=== PATIENT | female | born 1945 | race Caucasian/White ===

== ENCOUNTER → 2016-05-20 | Outpatient (CLI) | payer OTHER ==
[~2016-05-20] MED LIST: ASPI-435 PO; CALC500C3 PO; CHOL200010 PO; CMD5 PO; CRAN1CAP15 PO; DNSIS60 IM; HYDR12.55 PO; LEVO100T7 PO; LPT/20 PO; LVMI SQ; MAGN1TAB19 PO; METF1TAB53 PO; METO25TA3 PO; MYCO250C26 PO; NVLGI/PEN SQ; PRD/25 PO; TACR0.5C5 PO; TACR1CAP5 PO; TRIM100T20 PO
[2016-05-20 16:29] LABS: BASO % 0.5 %; BASO ABS # 0.04 K/uL (0-0.2); COMPLETE YES; EOS % 0.7 %; HEMATOCRIT 38.5 % (37-47); IG% 0.4 %; LYMPH % 22.1 %; LYMPH ABS # 1.64 K/uL (1.2-3.4); MEAN CELL VOLUME 89.7 fL (80-100); MEAN CORPUSCULAR HEMOGLOBIN 29.1 pg (25-34); MEAN CORPUSCULAR HGB CONC 32.5 g/dl (32-36); MEAN PLATELET VOLUME 11.1 fL (7.4-10.4); MONO % 9.4 %; NEUT % 66.9 %; PLATELET COUNT 222 K/uL (130-400); RED BLOOD COUNT 4.29 M/uL (4.2-5.4); WHITE BLOOD COUNT 7.43 K/uL (4.8-10.8)
[2016-05-20 16:38] LABS: ALT/SGPT 21 U/L (12-78); AST/SGOT 16 U/L (15-37); BLOOD UREA NITROGEN 9 mg/dl (7-18); CALCIUM 8.8 mg/dl (8.5-10.1); CARBON DIOXIDE 27 mmol/L (21-32); CHLORIDE 100 mmol/L (98-107); CREATININE 0.65 mg/dl (0.60-1.20); GLUCOSE 124 mg/dl (70-99); POTASSIUM 3.9 mmol/L (3.5-5.1); SODIUM 136 mmol/L (136-145)
[2016-05-20 16:47] LABS: ALKALINE PHOSPHATASE 51 U/L (45-117); CHOLESTEROL 136 mg/dl (0-200); CHOLESTEROL/HDL RATIO 2.1; HDL CHOLESTEROL 66 mg/dl; LDL CHOLESTEROL CALCULATED 57 mg/dl; THYROID STIMULATING HORMONE 0.962 uIu/ml (0.300-4.500); TRIGLYCERIDES 65 mg/dl (0-150); VERY LOW DENSITY LIPOPROT CALC 13 mg/dl
[2016-05-20 19:15] LABS: ESTIMATED AVERAGE GLUCOSE 154 mg/dl; HA1C FLAG Normal (Normal)
== END | disposition home or self-care (01) ==
LOC: C.LABSPEC 14:44
PROVIDERS: ATTEND Family Medicine
DX: E11.9 Type 2 diabetes mellitus without complications (principal); E03.9 Hypothyroidism, unspecified; E78.2 Mixed hyperlipidemia

== ENCOUNTER → 2016-07-07 | Outpatient (CLI) | payer OTHER | END | disposition home or self-care (01) | LOC: C.LABSPEC 12:48 | PROVIDERS: ATTEND Family Medicine | DX: R30.0 Dysuria (principal) ==

== ENCOUNTER → 2016-08-16 | Outpatient (CLI) | payer OTHER ==
[~2016-08-16] MED LIST changes: -TRIM100T20 PO; +TRIM1TAB PO
== END | disposition home or self-care (01) ==
LOC: C.LABSPEC 13:26
PROVIDERS: ATTEND Family Medicine
DX: R30.0 Dysuria (principal)

== ENCOUNTER → 2016-10-17 | Outpatient (CLI) | payer OTHER | END | disposition home or self-care (01) | LOC: C.LABSPEC 13:26 | PROVIDERS: ATTEND Family Medicine | DX: R30.0 Dysuria (principal); R35.0 Frequency of micturition ==

== ENCOUNTER → 2016-11-18 | Outpatient (CLI) | payer OTHER ==
[~2016-11-18] MED LIST changes: +TRIM100T20 PO; -TRIM1TAB PO
[2016-11-18 13:36] LABS: BASO % 0.4 %; BASO ABS # 0.02 K/uL (0-0.2); COMPLETE YES; EOS % 0.5 %; LYMPH % 27.4 %; LYMPH ABS # 1.52 K/uL (1.2-3.4); MEAN CELL VOLUME 90.1 fL (80-100); MEAN CORPUSCULAR HEMOGLOBIN 29.3 pg (25-34); MEAN CORPUSCULAR HGB CONC 32.6 g/dl (32-36); MEAN PLATELET VOLUME 10.8 fL (7.4-10.4); MONO % 13.5 %; NEUT % 58.2 %; PLATELET COUNT 198 K/uL (130-400); RED BLOOD COUNT 4.33 M/uL (4.2-5.4); WHITE BLOOD COUNT 5.55 K/uL (4.8-10.8)
[2016-11-18 13:57] LABS: ALT/SGPT 20 U/L (12-78); AST/SGOT 20 U/L (15-37); BLOOD UREA NITROGEN 10 mg/dl (7-18); BUN/CREATININE RATIO 14.4 (10-20); CALCIUM 8.9 mg/dl (8.5-10.1); CARBON DIOXIDE 26 mmol/L (21-32); CHLORIDE 96 mmol/L (98-107); CHOLESTEROL 135 mg/dl (0-200); CREATININE 0.72 mg/dl (0.60-1.20); GLUCOSE 265 mg/dl (70-99); POTASSIUM 4.1 mmol/L (3.5-5.1); SODIUM 131 mmol/L (136-145)
[2016-11-18 14:03] LABS: ALB/GLOB RATIO 1.2 (0.9-2); ALKALINE PHOSPHATASE 47 U/L (45-117); CHOLESTEROL/HDL RATIO 2.1; HDL CHOLESTEROL 63 mg/dl; LDL CHOLESTEROL CALCULATED 59 mg/dl; THYROID STIMULATING HORMONE 0.606 uIu/ml (0.300-4.500); TRIGLYCERIDES 66 mg/dl (0-150); VERY LOW DENSITY LIPOPROT CALC 13 mg/dl
[2016-11-18 15:15] LABS: ESTIMATED AVERAGE GLUCOSE 148 mg/dl; HA1C FLAG Normal (Normal)
== END | disposition home or self-care (01) ==
LOC: C.LABSPEC 12:08
PROVIDERS: ATTEND Family Medicine
DX: E11.9 Type 2 diabetes mellitus without complications (principal); E78.2 Mixed hyperlipidemia; E03.9 Hypothyroidism, unspecified

== ENCOUNTER → 2016-11-24 | Outpatient (CLI) | payer OTHER | END | disposition home or self-care (01) | LOC: C.LABSPEC 13:02 | PROVIDERS: ATTEND Family Medicine | DX: R35.0 Frequency of micturition (principal); R30.0 Dysuria ==

== ENCOUNTER → 2017-01-02 | Outpatient (CLI) | payer OTHER | END | disposition home or self-care (01) | LOC: C.LABSPEC 13:10 | PROVIDERS: ATTEND Family Medicine | DX: R30.0 Dysuria (principal); R35.0 Frequency of micturition ==

== ENCOUNTER → 2017-02-09 | Outpatient (CLI) | payer OTHER | END | disposition home or self-care (01) | LOC: C.LABSPEC 13:56 | PROVIDERS: ATTEND Family Medicine | DX: R30.0 Dysuria (principal); R35.0 Frequency of micturition ==

== ENCOUNTER → 2017-04-28 | Outpatient (CLI) | payer OTHER ==
[~2017-04-28] MED LIST changes: -TRIM100T20 PO; +TRIM1TAB PO
== END | disposition home or self-care (01) ==
LOC: C.LABSPEC 13:23
PROVIDERS: ATTEND Family Medicine
DX: R30.0 Dysuria (principal); R35.0 Frequency of micturition

== ENCOUNTER → 2017-05-26 | Outpatient (CLI) | payer OTHER ==
[~2017-05-26] MED LIST changes: -LPT/20 PO; +LPT20 PO
[2017-05-26 13:55] LABS: BASO % 0.4 %; BASO ABS # 0.02 K/uL (0-0.2); EOS % 0.9 %; EOS ABS # 0.05 K/uL (0-0.5); HEMATOCRIT 39.5 % (37-47); IG# 0.01 K/uL (0.00-0.02); LYMPH % 31.6 %; LYMPH ABS # 1.77 K/uL (1.2-3.4); MEAN CELL VOLUME 92.3 fL (80-100); MEAN CORPUSCULAR HEMOGLOBIN 30.4 pg (25-34); MEAN CORPUSCULAR HGB CONC 32.9 g/dl (32-36); MONO % 14.1 %; MONO ABS # 0.79 K/uL (0.11-0.59); NEUT % 52.8 %; NEUT ABS # 2.96 K/uL (1.4-6.5); PLATELET COUNT 205 K/uL (130-400); RED CELL DISTRIBUTION WIDTH SD 47.1 fL (36.4-46.3)
[2017-05-26 14:02] LABS: HEMOGLOBIN A1C 6.8 % (4.5-5.6)
[2017-05-26 16:32] LABS: ALBUMIN 3.7 gm/dl (3.4-5.0); ALT/SGPT 20 U/L (12-78); BLOOD UREA NITROGEN 11 mg/dl (7-18); CALCIUM 9.4 mg/dl (8.5-10.1); CARBON DIOXIDE 27 mmol/L (21-32); CHOLESTEROL 131 mg/dl (0-200); CREATININE 0.64 mg/dl (0.60-1.20); GLUCOSE 161 mg/dl (70-99); POTASSIUM 3.9 mmol/L (3.5-5.1); SODIUM 130 mmol/L (136-145)
[2017-05-26 16:41] LABS: ALKALINE PHOSPHATASE 42 U/L (45-117); AST/SGOT 22 U/L (15-37); LDL CHOLESTEROL CALCULATED 52 mg/dl
== END | disposition home or self-care (01) ==
LOC: C.LABSPEC 12:46
PROVIDERS: ATTEND Family Medicine
DX: E11.9 Type 2 diabetes mellitus without complications (principal); E78.2 Mixed hyperlipidemia; E03.9 Hypothyroidism, unspecified

== ENCOUNTER → 2017-11-23 | Outpatient (CLI) | payer OTHER | END | disposition home or self-care (01) | LOC: C.LABSPEC 18:10 | PROVIDERS: ATTEND Family Medicine | DX: E11.9 Type 2 diabetes mellitus without complications (principal) ==

== ENCOUNTER 2023-03-13 16:42 | Observation (INO) ==
--- NOTE | 2023-03-13 16:51 | ED Triage Note ---
Date of Service March 13, 2023 History of Present Illness This patient was briefly evaluated while in triage. An abbreviated physical exam was performed. This patient is a 77-year-old Female who presents to the ED for evaluation of a possible UTI. She has been urinating frequently, feels weak, and has a decreased appetite. Symptoms have been ongoing for 3 days. She sees urology at [facility]. She gave them a urine sample at the urology office and states there was blood in it. She was started on Cipro and took the first dose just before arrival, but she wanted to get checked out to make sure she wasn't dehydrated. Physical Exam VITALS: Vitals are noted on the nurse's note and reviewed by myself. GENERAL: This is a 77-year-old female, in no acute distress, well-developed well-nourished. SKIN: The skin was without rashes. HEART: Regular rate and rhythm without murmurs gallops or rubs. LUNGS: Clear to auscultation bilaterally without wheezes, rales or rhonchi. ABDOMEN: Positive bowel sounds x 4. Soft, nontender to palpation NEURO: Patient was alert and oriented to person place and time. Initial orders for labs and / or imaging were placed and patient was placed in the waiting area until a bed is available. Please see further documentation for the full ED course. MDM / Impression Impression Impression: Acute UTI (urinary tract infection), Elevated INR, Acute hyponatremia
[2023-03-13 18:22] LABS: Basophils # (auto) 0.05 K/uL (0.00-0.20); Basophils % (auto) 0.4 %; Eosinophils # (auto) 0.03 K/uL (0.00-0.50); Eosinophils % (auto) 0.2 %; Hemoglobin 11.4 g/dl (12.0-16.0); Immature Granulocytes # (auto) 0.06 K/uL (0.01-0.20); Immature Granulocytes % (auto) 0.5 %; Lymphocytes # (auto) 1.71 K/uL (1.20-3.40); Lymphocytes % (auto) 14.1 %; Mean Corpuscular Hgb Conc 32.6 g/dL (32.0-36.0); Mean Corpuscular Volume 95.1 fL (80.0-100.0); Mean Platelet Volume 10.5 fL (9.4-12.4); Monocytes # (auto) 1.18 K/uL (0.11-0.59); Monocytes % (auto) 9.8 %; Neutrophils # (auto) 9.07 K/uL (1.40-6.50); Platelet Count 215 K/uL (130-400); RDW Coefficient of Variation 14.4 % (11.5-14.5); RDW Standard Deviation 50.8 fL (36.4-46.3); Red Blood Count 3.68 M/uL (4.20-5.40)
[2023-03-13 18:39] LABS: Appearance Urine Turbid (Clear); Bacteria Urine Automated 4+ (Negative); Bilirubin Urine Negative (Negative); Blood Urine 3+ (Negative); Cast Urine Automated 0 /lpf (0-5); Color Urine Yellow; Glucose Urine UA 2+ (Negative); Ketones Urine 1+ (Negative); Leukocyte Esterase Urine 3+ (Negative); Nitrite Urine Positive (Negative); Protein Urine 1+ (Negative); RBC Urine Automated 0-4 /hpf (0-4); Specific Gravity Urine 1.016 (1.000-1.030); Urobilinogen Urine Negative (Negative); WBC Urine Automated >30 /hpf (0-5); pH Urine 6.5 (4.5-7.5)
[2023-03-13 18:41] LABS: Alanine Aminotransferase 13 U/L (7-52); Albumin Globulin Ratio 0.9 (0.9-2); Albumin Level 3.5 gm/dl (3.4-5.0); Alkaline Phosphatase 53 U/L (34-104); Anion Gap 4 (3-11); Aspartate Aminotransferase 21 U/L (13-39); BUN Creatinine Ratio 17.6 (10-20); Bilirubin,Total 0.7 mg/dl (0.2-1.0); Blood Urea Nitrogen 13 mg/dl (6-23); Calcium 9.1 mg/dl (8.6-10.3); Carbon Dioxide 24 mmol/L (21-32); Chloride 99 mmol/L (98-107); Est GFR (African American) 91.2 ml/min; Est GFR (Non-African American) 78.7 ml/min; Globulin 3.7 gm/dl (2.5-4.0); Glucose 111 mg/dl (70-99(Fasting)); Sodium 127 mmol/L (136-145); Total Protein 7.2 gm/dl (6.0-8.3)
[2023-03-13 19:15] LABS: Partial Thromboplastin Ratio 2.5; Prothrombin Time 60.7 Seconds (9.0-12.0)
[2023-03-13 19:38] LABS: INR 6.2 (0.9-1.1); Partial Thromboplastin Time 71.2 Seconds (21.0-31.0)
[2023-03-13] MEDS ORDERED: cefTRIAXone SODIUM 350 MG/ML IM IM ONE (20:01)
[2023-03-13] MEDS ORDERED: SODIUM CHLORIDE 0.9% 1,000 ML IV ONE (20:01)
[2023-03-13] MEDS ORDERED: CEFEPIME 2,000 MG/20 ML VIAL IV STA (20:02)
--- NOTE | 2023-03-13 20:03 | Emergency Department Note ---
Impression & Plan Acute UTI (urinary tract infection), Elevated INR, Acute hyponatremia ED Provider Note NAME: JOSHUA YANG AGE: 77 SEX: F : 1945 ARRIVES VIA: Walk-In INFORMANT: Patient, ED PROVIDER(S): Collette Maldonado MD CHIEF COMPLAINT: UTI HPI: This is a 77-year-old female with history of renal transplant on immunosuppressive medications, atrial flutter, hydronephrosis of transplanted kidney, presenting for UTI. Patient states that for the past few days she has had symptoms of UTI, worsening dysuria and urgency/frequency. She notes that she did a urine sample on Monday and was waiting for the culture. She started antibiotics today but has noticed that she feels extremely weak, tired with chills. She does have a transplanted kidney on immunosuppression medications. She follows with urology, who is working up for hydronephrosis of her transplanted kidney. Otherwise she has not had any nausea or vomiting. No fevers at home. ROS: See above HPI for pertinent positives & negatives. A total of 10 systems reviewed and were otherwise negative. PAST MEDICAL HISTORY: See Below PAST SURGICAL HISTORY: See Below FAMILY HISTORY: See Below SOCIAL HISTORY: See Below HOME MEDICATIONS: See Below ALLERGIES: See Below VITALS: See Below PHYSICAL EXAMINATION: General: resting comfortably in no acute distress Head: Normocephalic and atraumatic Eyes: Normal inspection, extraocular muscles intact, no conjunctival pallor Ear, nose, throat: Normal external exam Neck: Normal range of motion Respiratory: Patient is in no respiratory distress, lungs clear to auscultation bilaterally Cardiovascular: RRR without murmur appreciated GI: soft, nontender, no guarding or rebound Extremities: pulses intact with good cap refills, no LE pitting edema or calf tenderness Neuro: The patient awake and alert, appropriately conversive,no focal decifits Skin: Warm, dry, and intact MEDICAL DECISION MAKING: This is a 77-year-old female with history as above presenting for UTI. Patient's blood work and urinalysis were done in triage. Blood work as reviewed by me reveals a leukocytosis 12.1. Otherwise she has an INR of 6.2, hyponatremia 127. Unclear etiology of these findings. Otherwise patient's urinalysis reveals clear UTI with hematuria, leuk esterase, nitrate positive significant bacteriuria. We will treat with cefepime as previous cultures in 2018 and 2019 do show Pseudomonas growth. Otherwise we will get CT abdomen/pelvis to rule out intra abdominal pathology such as kidney stones potential etiology of patient's current UTI. CT imaging does reveal moderate to severe hydronephrosis, this appears similar to patient's previous ultrasound on about 3 weeks ago upon record review. Will admit for IV antibiotics, significantly elevated INR, hyponatremia and potential for deterioration. Triage Nursing notes reviewed. Prior medical records reviewed Vital Signs: reviewed and remarkable for no significant abnormalities Differential diagnosis: Urosepsis, acute graft rejection, infected kidney stone ER treatment provided: See below Diagnostics interpreted by me: ECG: None Cardiac Monitoring: An order was placed for continuous cardiac monitoring. The monitor shows a rate of 90 with sinus rhythm Laboratory studies: As stated above and show below. Imaging studies: See below. Radiographic imaging was reviewed by myself Consultation(s): None Critical Care Note: I have personally spent 30 minutes of critical care time in the direct management of this patient. This includes bedside care, interpretation of diagnostic studies, and testing, discussion with consultants, patient, and family members, and other required patient management activities. This 30 minutes is in excess of all separately billable procedures. Past Med/Surg History Medical History (Updated 03/13/23 @ 22:44 by Collette Maldonado MD) Atrial flutter Heart valve disease pt is s/p mechanical mitral valve replacement. most recent ECHO 01/24/23: mitral valve: mild paravalvular regurgitation. moderately calcified AV cusps with decreased systolic ecxursion. likely moderate to severe, low flow/low gradient stenosis (MANOLO 0.81cm2) Hydronephrosis of kidney transplant reason for upcoming procedure; pt had catheter placement with no signifcant improvement Osteoarthritis History of degenerative disc disease Spinal stenosis Fistula hx LUE AVF History of hemodialysis on HD x 2 years prior to renal transplant History of end stage renal disease hx ESRD and HD previously; pt is s/p left renal transplant. Follows with Dr. Benitez, [facility]. DM type 2 (diabetes mellitus, type 2) IDDM Wears hearing aid in both ears Peripheral Vascular Disease Hypothyroidism Hyperlipidemia Hypertension Surgical History (Updated 03/13/23 @ 15:41 by Isamar Romero PA-C) History of wisdom tooth extraction History of cataract surgery History of mitral valve replacement mechanical; Follows with Dr. Luca Coley History of colonoscopy History of kidney transplant Left. 1997, 2003. 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 Required: No Beliefs That Will Affect Care: None marital status: Current Living Situation: Spouse current occupational status: retired Feels Safe at Home: Yes Assistive Devices: Cane, Glasses and Hearing Aid - Bilateral Allergies Allergies Allergy/AdvReac Type Severity Reaction Status Date / Time Sulfa (Sulfonamide Allergy Intermediate RASH & ITCH Verified 02/08/23 13:14 Antibiotics) bee venom protein (honey bee) Allergy Unknown UNKNOWN Verified 02/08/23 13:14 sulfamethoxazole Allergy Unknown Rash Verified 02/08/23 13:14 [From Bactrim] trimethoprim [From Bactrim] Allergy Unknown Rash Verified 02/08/23 13:14 Home Meds Home Medications Medication Instructions Recorded Confirmed aspirin 81 mg tablet,delayed 81 mg PO QPM 02/26/20 02/08/23 release atorvastatin 20 mg tablet 20 mg PO QPM 02/26/20 02/08/23 calcium carbonate 200 mg calcium 200 mg PO QDL 02/26/20 02/08/23 (500 mg) chewable tablet (Tums) cholecalciferol (vitamin D3) 125 125 mcg PO QDL 02/26/20 02/08/23 mcg (5,000 unit) capsule insulin aspar prt-insulin aspart 1 sliding scale dose subcut 02/26/20 02/08/23 100 unit/mL (70-30) subcutaneous USEASDIRECTD soln (Novolog Mix 70-30 U-100 Insuln) levothyroxine 100 mcg capsule 100 mcg PO QAM 02/26/20 02/08/23 prednisone 2.5 mg tablet 2.5 mg PO QAM 02/26/20 02/08/23 tacrolimus 0.5 mg capsule, 0.5 mg PO QAM 02/26/20 02/08/23 immediate-release Saccharomyces boulardii 250 mg 250 mg PO QDL 12/28/22 02/08/23 capsule (Daily Probiotic (S. boulardii)) amlodipine 2.5 mg tablet 5 mg PO BID 12/28/22 02/08/23 gabapentin 300 mg capsule 300 mg PO QDL 12/28/22 02/08/23 insulin detemir U-100 100 unit/mL 10 unit subcut QAM 12/28/22 02/08/23 (3 mL) subcutaneous pen (Levemir FlexPen) magnesium oxide 400 mg PO QDL 12/28/22 02/08/23 metoprolol succinate 50 mg capsule 50 mg PO BID 12/28/22 02/08/23 sprinkle, ext. release 24 hr mycophenolate mofetil 250 mg 250 mg PO BID 12/28/22 02/08/23 capsule valsartan 160 mg tablet 160 mg PO BID 12/28/22 02/08/23 warfarin 3 mg tablet 3 mg PO UD 02/08/23 02/08/23 warfarin 4 mg tablet 4 mg PO UD 02/08/23 02/08/23 Previous Rx's Medication Instructions Recorded ciprofloxacin HCl 250 mg tablet 250 mg PO BID 7 days #14 tabs 03/13/23 Results & Data (ED) Vital Signs Vital Signs - 24 hr 03/13/23 16:50 03/13/23 20:08 03/13/23 20:21 Temperature 36.9 C Temperature Source Temporal Artery Scan Pulse Rate 94 H 89 90 Pulse Rate from SpO2 Sensor 89 89 Respiratory Rate 19 26 H 21 Respiratory Effort / Characteristics Non-Labored Spontaneous Respiratory Depth Normal Blood Pressure 149/71 H 159/78 H 143/63 H Blood Pressure Mean 97 105 89 Pulse Oximetry 92 95 95 Oxygen Delivery Method Room Air Room Air Room Air Sepsis Recent Fever Within 48 Hours No Sepsis New/Unexplained Change in Mental Status N/A Sepsis Action Taken by Nursing No Action Required 03/13/23 20:30 03/13/23 20:35 03/13/23 21:00 Temperature Temperature Source Pulse Rate 90 91 H 89 Pulse Rate from SpO2 Sensor 90 89 Respiratory Rate 19 23 Respiratory Effort / Characteristics Respiratory Depth Blood Pressure 143/63 H 134/66 Blood Pressure Mean 89 88 Pulse Oximetry 95 95 Oxygen Delivery Method Sepsis Recent Fever Within 48 Hours Sepsis New/Unexplained Change in Mental Status Sepsis Action Taken by Nursing 03/13/23 22:00 03/13/23 22:30 Temperature Temperature Source Pulse Rate 88 90 Pulse Rate from SpO2 Sensor 88 86 Respiratory Rate 32 H 20 Respiratory Effort / Characteristics Respiratory Depth Blood Pressure 133/62 132/67 Blood Pressure Mean 85 88 Pulse Oximetry 97 96 Oxygen Delivery Method Sepsis Recent Fever Within 48 Hours Sepsis New/Unexplained Change in Mental Status Sepsis Action Taken by Nursing Laboratory Data 03/13/23 18:08 03/13/23 18:08 Lab Results 03/13/23 03/13/23 Range/Units 18: 18:08 WBC 12.10 H (4.8-10.8) K/ul RBC 3.68 L (4.20-5.40) M/uL Hgb 11.4 L (12.0-16.0) g/dl Hct 35.0 L (37.0-47.0) % MCV 95.1 (80.0-100.0) fL MCH 31.0 (25.0-34.0) pg MCHC 32.6 (32.0-36.0) g/dL RDW Std Deviation 50.8 H (36.4-46.3) fL RDW Coeff of Ramy 14.4 (11.5-14.5) % Plt Count 215 (130-400) K/uL MPV 10.5 (9.4-12.4) fL Immature Gran % (Auto) 0.5 % Neut % (Auto) 75.0 % Lymph % (Auto) 14.1 % [place] % (Auto) 9.8 % Eos % (Auto) 0.2 % Baso % (Auto) 0.4 % Neut # (Auto) 9.07 H (1.40-6.50) K/uL Lymph # (Auto) 1.71 (1.20-3.40) K/uL [place] # (Auto) 1.18 H (0.11-0.59) K/uL Eos # (Auto) 0.03 (0.00-0.50) K/uL Baso # (Auto) 0.05 (0.00-0.20) K/uL Immature Gran # (Auto) 0.06 (0.01-0.20) K/uL PT 60.7 H (9.0-12.0) Seconds INR 6.2 H* (0.9-1.1) APTT 71.2 H* (21.0-31.0) Seconds PTT Ratio 2.5 Sodium 127 L (136-145) mmol/L Potassium 4.0 (3.5-5.1) mmol/L Chloride 99 (98-107) mmol/L Carbon Dioxide 24 (21-32) mmol/L Anion Gap 4 (3-11) BUN 13 (6-23) mg/dl Creatinine 0.74 (0.6-1.2) mg/dl Est Cr Clr Drug Dosing Not Reportable Est GFR ( Amer) 91.2 ml/min Est GFR (Non-Af Amer) 78.7 ml/min BUN/Creatinine Ratio 17.6 (10-20) Glucose 111 H (70-99(Fasting)) mg/dl Calcium 9.1 (8.6-10.3) mg/dl Total Bilirubin 0.7 (0.2-1.0) mg/dl AST 21 (13-39) U/L ALT 13 (7-52) U/L Alkaline Phosphatase 53 (34-104) U/L Total Protein 7.2 (6.0-8.3) gm/dl Albumin 3.5 (3.4-5.0) gm/dl Globulin 3.7 (2.5-4.0) gm/dl Albumin/Globulin Ratio 0.9 (0.9-2) Urine Color Yellow Urine Appearance Turbid A (Clear) Urine pH 6.5 (4.5-7.5) Ur Specific [place] 1.016 (1.000-1.030) Urine Protein 1+ H (Negative) Urine Glucose (UA) 2+ H (Negative) Urine Ketones 1+ H (Negative) Urine Blood 3+ H (Negative) Urine Nitrite Positive A (Negative) Urine Bilirubin Negative (Negative) Urine Urobilinogen Negative (Negative) Ur Leukocyte Esterase 3+ H (Negative) Urine WBC (Auto) >30 H (0-5) /hpf Urine RBC (Auto) 0-4 (0-4) /hpf U Hyaline Cast (Auto) 0 (0-5) /lpf U Epithel Cells (Auto) 10-20 H (0-5) /lpf Urine Bacteria (Auto) 4+ H (Negative) Administered Medications Discontinued Medications Ceftriaxone Sodium (Ceftriaxone Sodium 350 Mg/Ml Im) 1,000 mg IM NOW ONE Stop: 03/13/23 20:02 Last Admin: 03/13/23 20:30 Dose: Not Given Documented By: IZAIAH Sodium Chloride (Nss) 1,000 mls @ 999 mls/hr IV .Q1H1M ONE Stop: 03/13/23 21:01 Last Admin: 03/13/23 20:26 Dose: 999 mls/hr Documented By: IZAIAH Cefepime HCl (Maxipime) 2,000 mg in 20 mls @ 5 mls/min IV NOW STA; Protocol Stop: 03/13/23 20:05 Last Admin: 03/13/23 20:26 Dose: 5 mls/min Documented By: IZAIAH Imaging Data Radiologist's Impression: Abdomen/Pelvis CT 03/13/23 20:00 Exam(s): CT ABDOMEN + PELVIS Without Contrast EXAM: CT Abdomen and Pelvis Without Intravenous Contrast CLINICAL HISTORY: Reason for exam: kidney stone, hx transplant, UTI. TECHNIQUE: Axial computed tomography images of the abdomen and pelvis without intravenous contrast. CTDI is 21.17 mGy and DLP is 1026.31 mGy-cm. Automated exposure control was utilized for the study. A dose lowering technique was utilized adhering to the principles of ALARA. COMPARISON: No relevant prior studies available. FINDINGS: Lung bases: Unremarkable. No mass. No consolidation. Heart: Cardiomegaly. Mitral valve prosthesis. ABDOMEN: Liver: Unremarkable. Gallbladder and bile ducts: Unremarkable. No calcified stones. No ductal dilation. Pancreas: Atrophy the pancreas. No ductal dilation. Spleen: Unremarkable. No splenomegaly. Adrenals: Unremarkable. No mass. Kidneys and ureters: Bilateral renal atrophy with nonfunctional kidneys. The transplanted kidney in the LEFT iliac fossa with moderate- severe hydronephrosis. Consider renal transplant Doppler, if clinically indicated. Stomach and bowel: Diverticulosis, without acute diverticulitis. No small bowel obstruction. No free intraperitoneal air. PELVIS: Appendix: No findings to suggest acute appendicitis. Bladder: Unremarkable. No stones. Reproductive: ABDOMEN and PELVIS: Intraperitoneal space: Unremarkable. No free air. No significant fluid collection. Bones/joints: Sternotomy wires. Degenerative changes of the spine. No acute fracture. No dislocation. Soft tissues: Unremarkable. Vasculature: Atherosclerotic changes of the aorta. No abdominal aortic aneurysm. Lymph nodes: Unremarkable. No enlarged lymph nodes. IMPRESSION: 1. Bilateral renal atrophy with nonfunctional kidneys. Transplanted kidney in the LEFT iliac fossa with moderate-severe hydronephrosis. Consider renal transplant Doppler, if clinically indicated. 2. Diverticulosis, without acute diverticulitis. No small bowel obstruction. No free intraperitoneal air. Electronically signed by: Ángel Laughlin MD 03/13/23 21:32 PM Discharge Plan Visit Data Chief Complaint: Urinary Symptoms Stated Complaint: URINARY SYMPTOMS, FEVER, LOSS OF APPITITE ED Provider: Collette Maldonado Discharge Problem: Acute UTI (urinary tract infection), Elevated INR, Acute hyponatremia Forms Stand Alone Forms: My [facility] [employer] Prescriptions Prescriptions: No Action tacrolimus 0.5 mg capsule 0.5 mg PO QAM levothyroxine 100 mcg capsule 100 mcg PO QAM aspirin 81 mg tablet,delayed release (DR/EC) 81 mg PO QPM insulin asp prt-insulin aspart [Novolog Mix 70-30 U-100 Insuln] 100 unit/mL (70-30) solution 1 sliding scale dose subcut USEASDIRECTD calcium carbonate [Tums] 200 mg calcium (500 mg) tablet,chewable 200 mg PO QDL cholecalciferol (vitamin D3) 125 mcg (5,000 unit) capsule 125 mcg PO QDL atorvastatin 20 mg tablet 20 mg PO QPM prednisone 2.5 mg tablet 2.5 mg PO QAM metoprolol succinate 50 mg capsule,sprinkle,ER 24hr 50 mg PO BID mycophenolate mofetil 250 mg capsule 250 mg PO BID amlodipine 2.5 mg tablet 5 mg PO BID valsartan 160 mg tablet 160 mg PO BID ciprofloxacin HCl 250 mg tablet 250 mg PO BID 7 Days Qty: 14 0RF gabapentin 300 mg capsule 300 mg PO QDL magnesium oxide 400 mg magnesium capsule 400 mg PO QDL Saccharomyces boulardii [Daily Probiotic (S. boulardii)] 250 mg capsule 250 mg PO QDL Levemir FlexPen 100 unit/mL (3 mL) insulin pen 10 unit subcut QAM Rx Instructions: 10 units warfarin 4 mg Tablet 4 mg PO UD Patient Comments: takes every day except wed warfarin 3 mg Tablet 3 mg PO UD Patient Comments: takes every day except wed Referrals Referrals: Joe Quesada, [Primary Care Provider] -
--- NOTE | 2023-03-13 21:33 | CT Scan Report ---
Exam(s): CT ABDOMEN + PELVIS Without Contrast EXAM: CT Abdomen and Pelvis Without Intravenous Contrast CLINICAL HISTORY: Reason for exam: kidney stone, hx transplant, UTI. TECHNIQUE: Axial computed tomography images of the abdomen and pelvis without intravenous contrast. CTDI is 21.17 mGy and DLP is 1026.31 mGy-cm. Automated exposure control was utilized for the study. A dose lowering technique was utilized adhering to the principles of ALARA. COMPARISON: No relevant prior studies available. FINDINGS: Lung bases: Unremarkable. No mass. No consolidation. Heart: Cardiomegaly. Mitral valve prosthesis. ABDOMEN: Liver: Unremarkable. Gallbladder and bile ducts: Unremarkable. No calcified stones. No ductal dilation. Pancreas: Atrophy the pancreas. No ductal dilation. Spleen: Unremarkable. No splenomegaly. Adrenals: Unremarkable. No mass. Kidneys and ureters: Bilateral renal atrophy with nonfunctional kidneys. The transplanted kidney in the LEFT iliac fossa with moderate- severe hydronephrosis. Consider renal transplant Doppler, if clinically indicated. Stomach and bowel: Diverticulosis, without acute diverticulitis. No small bowel obstruction. No free intraperitoneal air. PELVIS: Appendix: No findings to suggest acute appendicitis. Bladder: Unremarkable. No stones. Reproductive: ABDOMEN and PELVIS: Intraperitoneal space: Unremarkable. No free air. No significant fluid collection. Bones/joints: Sternotomy wires. Degenerative changes of the spine. No acute fracture. No dislocation. Soft tissues: Unremarkable. Vasculature: Atherosclerotic changes of the aorta. No abdominal aortic aneurysm. Lymph nodes: Unremarkable. No enlarged lymph nodes. IMPRESSION: 1. Bilateral renal atrophy with nonfunctional kidneys. Transplanted kidney in the LEFT iliac fossa with moderate-severe hydronephrosis. Consider renal transplant Doppler, if clinically indicated. 2. Diverticulosis, without acute diverticulitis. No small bowel obstruction. No free intraperitoneal air. Electronically signed by: Ángel Laughlin MD 03/13/23 21:32 PM
--- NOTE | 2023-03-14 00:53 | History & Physical Report ---
Date of Service March 14, 2023 Assessment & Plan (1) Acute UTI (urinary tract infection): Plan: 77 F with PMH left renal transplant on immunosuppressive therapy, atrial flutter, hypertension, hyperlipidemia, hypothyroidism, presenting for UTI. Acute UTI -Afebrile. Symptomatic (dysuria, hematuria). Confirmed on urinalysis. -Hydronephrosis of transplanted left kidney, no evidence of stones seen on imaging. -S/p IV cefepime 2 g x 1 dose in the ED. Patient has documented history of Pseudomonas UTI. * Admit to [facility] telemetry * Continue antibiotics x10 days: IV cefepime 2 g every 12 hours * Await urine culture report for targeted therapy * Trend daily CBC. Supratherapeutic INR -INR 6.2 on admission. Patient follows with anticoagulation clinic but it is unclear where at this time. Therapeutic range also unknown. -Patient on warfarin 4 mg daily (previously 4 mg every afternoon except on Monday; 3 mg daily except Monday) for mechanical mitral valve replacement. * Tentatively hold warfarin until INR between 2.5-3.5, per guidelines for mechanical mitral valve (obtain anticoagulation clinic records ([facility] to verify warfarin regimen, therapeutic INR range) * Trend daily PT/INR Acute hyponatremia -127 on admission. Asymptomatic/mild. Review of chart shows normal range in the 130s. Last recorded sodium level one month ago normal (137). -Serum osm-270, urine osm-434, urine Na-58. Likely SIADH. -Thyroid-related etiology also possible, patient has history of hypothyroidism on levothyroxine (last TSH in 2019). * Fluid restriction-1.2 L * Trend sodium level on daily labs. Consider salt tabs if no improvement/worsening hyponatremia * Pending TSH level in a.m. S/p left renal transplant + hydronephrosis -On mycophenolate 250 mg twice daily, tacrolimus 1 mg daily, prednisone 2.5 mg daily -Follows with [facility]. Has been evaluated multiple times for frequent left renal hydronephrosis -Reflux etiology for hydronephrosis initially considered. However, catheter placement had no effect on symptoms. -Per last outpatient urology note, patient/family opted for stent placement (vs nephrostomy), with tentative plans for ureteroscopy. * Continue home regimen * Appreciate urologic evaluation Hypertension -Chronic. Managed with valsartan 160 mg twice daily, amlodipine 5 mg twice daily. * Continue home regimen Diabetes mellitus -IDDM type II. On SQ insulin regimen at home (Basal: Levemir 10 units every morning. Bolus: NovoLog 70/30 sliding scale dose) * Modified basal bolus regimen: Lantus 7 units every morning, SSI NovoLog per protocol (target range 100-140, CF-30, CR-10) * ACHS glucose checks * Carb consistent diet Hyperlipidemia -Chronic. On atorvastatin 20 mg every afternoon. * Continue home regimen GERD Heart valve disease -Chronic. S/p mechanical mitral valve replacement. On warfarin 4 mg every afternoon, aspirin 81 mg every afternoon, metoprolol succinate 50 mg twice daily -Warfarin held on admission for supratherapeutic INR 6.2. * Hold warfarin until INR falls within target range (see above). * Continue aspirin, Toprol Hypothyroidism -Chronic. Managed on levothyroxine 100 mcg daily. * Continue home regimen. * Pending TSH level. Appreciate results. Lumbar radiculopathy -Chronic. On gabapentin 300 mg daily. -Sees [facility]. Review of chart reveals epidural injection recently considered but deferred due to renal, cardiac comorbidities. * Continue home gabapentin Code: Full code Dispo: Med-Surg telemetry FEN/GI: Carb consistent DVT Prophylaxis: Lovenox 40 mg q24h PT/OT: Yes Consults: Urology Case Management: No (2) Elevated INR: (3) Acute hyponatremia: (4) Hypertension: (5) Hyperlipidemia: (6) DM type 2 (diabetes mellitus, type 2): (7) Heart valve disease: (8) Hypothyroidism: (9) Lumbar radiculopathy: History of Present Illness Primary Care Provider: DO Ida Powers is a 77-year-old woman with history of left renal transplant on immunosuppressive therapy, heart valve disease (s/p mechanical mitral valve replacement on warfarin), atrial flutter, peripheral vascular disease, type 1 diabetes, hypothyroidism, hypertension, and hyperlipidemia, who presents for urinary frequency, and concern for UTI. Patient provided urine sample last week, the culture was still pending. She was started on antibiotics earlier today but presented to the hospital due to lethargy, chills. She denies fevers, abdominal pain, burning on urination. In the ED, vitals were stable. CBC was notable for WBC-12.10, INR-6.2, and hyponatremia-127. UA showed hematuria, + leukocyte esterase, + nitrites, + significant bacteriuria. CT A/P showed moderate to severe hydronephrosis of transplanted left kidney. She received a 1 L NS bolus, and a dose of IV cefepime 2 g. Hospitalist service was then consulted for admission. On admission, patient corroborated ED HPI. She denies fevers, chills, abdominal pain, or burning on urination, though she does report hematuria, and urinary frequency. Allergies Allergy/AdvReac Type Severity Reaction Status Date / Time Sulfa (Sulfonamide Allergy Intermediate RASH & ITCH Verified 03/14/23 00:17 Antibiotics) bee venom protein (honey bee) Allergy Unknown UNKNOWN Verified 03/14/23 00:17 sulfamethoxazole Allergy Unknown Rash Verified 03/14/23 00:17 [From Bactrim] trimethoprim [From Bactrim] Allergy Unknown Rash Verified 03/14/23 00:17 Home Medications Medication Instructions Recorded Confirmed Type aspirin 81 mg tablet,delayed 81 mg PO QPM 02/26/20 03/14/23 History release atorvastatin 20 mg tablet 20 mg PO QPM 02/26/20 03/14/23 History calcium carbonate 200 mg calcium 1,000 mg PO QDL 02/26/20 03/14/23 History (500 mg) chewable tablet (Tums) insulin aspar prt-insulin aspart 1 sliding scale dose subcut 02/26/20 03/14/23 History 100 unit/mL (70-30) subcutaneous USEASDIRECTD soln (Novolog Mix 70-30 U-100 Insuln) levothyroxine 100 mcg capsule 100 mcg PO QAM 02/26/20 03/14/23 History prednisone 2.5 mg tablet 2.5 mg PO QAM 02/26/20 03/14/23 History tacrolimus 0.5 mg capsule, 1 mg PO QAM 02/26/20 03/14/23 History immediate-release amlodipine 2.5 mg tablet 5 mg PO BID 12/28/22 03/14/23 History gabapentin 300 mg capsule 300 mg PO QAM 12/28/22 03/14/23 History insulin detemir U-100 100 unit/mL 10 unit subcut QAM 12/28/22 03/14/23 History (3 mL) subcutaneous pen (Levemir FlexPen) magnesium oxide 400 mg PO QDL 12/28/22 03/14/23 History metoprolol succinate 50 mg capsule 50 mg PO BID 12/28/22 03/14/23 History sprinkle, ext. release 24 hr mycophenolate mofetil 250 mg 250 mg PO BID 12/28/22 03/14/23 History capsule valsartan 160 mg tablet 160 mg PO BID 12/28/22 03/14/23 History Lactobacillus rhamnosus GG 10 1 cap PO DAILYBL 03/14/23 03/14/23 History billion cell capsule (Culturelle) cholecalciferol (vitamin D3) 50 50 mcg PO DAILYBL 03/14/23 03/14/23 History mcg (2,000 unit) tablet ciprofloxacin HCl 250 mg tablet 250 mg PO BID 03/14/23 03/14/23 History cranberry extract 650 mg capsule 1,300 mg PO DAILYBL 03/14/23 03/14/23 History (Theracran) warfarin 2 mg tablet 4 mg PO QPM 03/14/23 03/14/23 History Past Med/Surg History Medical History Atrial flutter Heart valve disease pt is s/p mechanical mitral valve replacement. most recent ECHO 01/24/23: mitral valve: mild paravalvular regurgitation. moderately calcified AV cusps with decreased systolic ecxursion. likely moderate to severe, low flow/low gradient stenosis (MANOLO 0.81cm2) Hydronephrosis of kidney transplant reason for upcoming procedure; pt had catheter placement with no signifcant improvement Osteoarthritis History of degenerative disc disease Spinal stenosis Fistula hx LUE AVF History of hemodialysis on HD x 2 years prior to renal transplant History of end stage renal disease hx ESRD and HD previously; pt is s/p left renal transplant. Follows with Dr. Benitez, [facility]. DM type 2 (diabetes mellitus, type 2) IDDM Wears hearing aid in both ears Peripheral Vascular Disease Hypothyroidism Hyperlipidemia Hypertension Surgical History History of wisdom tooth extraction History of cataract surgery History of mitral valve replacement mechanical; Follows with Dr. Luca Coley History of colonoscopy History of kidney transplant Left. 1997, 2003. ([place] kidney removed due to infection 2018) Family History Father Prostate cancer Social History Smoking Status: Never smoker Second Hand Exposure: No; Do You Dip or Chew Tobacco: No; Hx Alcohol Use: No Hx Substance Use: No Preferred Language: Emirati Communication Ability: Effective Manager Of Data Required: No Beliefs That Will Affect Care: None marital status: Current Living Situation: Spouse current occupational status: retired Feels Safe at Home: Yes Assistive Devices: Cane, Glasses and Hearing Aid - Bilateral Review of Systems Review of Systems: All systems reviewed & are unremarkable except as noted in HPI & below Physical Exam Physical Exam: General: No acute distress HEENT: PERRLA. Normal conjunctiva, anicteric sclera. Oropharynx normal. Respiratory: Normal respiratory effort. Slight bibasilar crackles. Coarse breath sounds at base, mid lung mtz bilaterally. Slight end expiratory wheeze. No rhonchi or rubs. Cardiovascular: RRR. 2/6 systolic ejection murmur. Mechanical ticking sound heard on S1. No gallops or rubs. No pedal edema. GI: Soft, nondistended abdomen. Nontender x4 quadrants. No flank tenderness. Neuro: Alert and oriented x3. Hard of hearing (without hearing aids) Results & Data Results & Data Vital Signs (Past 12 Hours) Vital Signs Temp Pulse Resp BP Pulse Ox O2 Del Method 03/14/23 00:07 88 03/13/23 23:00 87 26 H 151/77 H 98 03/13/23 22:30 90 20 132/67 96 03/13/23 22:00 88 32 H 133/62 97 03/13/23 21:00 89 23 134/66 95 03/13/23 20:35 91 H 03/13/23 20:30 90 19 143/63 H 95 03/13/23 20:21 90 21 143/63 H 95 Room Air 03/13/23 20:08 89 26 H 159/78 H 95 Room Air 03/13/23 16:50 36.9 C 94 H 19 149/71 H 92 Room Air Supervising Physician Co-Signing Physician Notes Attending addendum: I have physically seen this patient, have supervised the medical residents activities, and agree with the H&P unless as otherwise noted. Assessment and Plan: Complicated UTI/chronic hydronephrosis associated with left renal transplant- Has followed with urology in the outpatient setting Follow urine culture and sensitivity Cefepime 2 g IV every 12 hours Follow serial CBC with differential and renal function panel Urology had discussed with patient in the past possibility of stent placement We will consult urology Continue mycophenolate and tacrolimus Supratherapeutic INR- INR 6.2 on admission Hold warfarin Follow serial INR, No reversal at this time Diabetes mellitus- Continue insulin detemir Placed on Accu-Cheks with NovoLog SSI Resident Activity Tracking Resident Involvement: Resident Care Provided Care Provided: Adult [facility]
[2023-03-14] MEDS ORDERED: GLUCOSE 40% GEL 15 GM TUBE PO PRN (01:32)
[2023-03-14] MEDS ORDERED: DEXTROSE 50% 50 ML SYRINGE IV PRN (01:32)
[2023-03-14] MEDS ORDERED: GLUCOSE 10 TAB/TUBE PO PRN (01:32)
[2023-03-14] MEDS ORDERED: CARBOHYDRATES FOR HYPOGLYCEMIA PO PRN (01:32)
[2023-03-14] MEDS ORDERED: GLUCAGON FOR INJ 1 MG VIAL SQ PRN (01:32)
[2023-03-14] MEDS ORDERED: MELATONIN 3 MG TAB PO PRN (01:32)
[2023-03-14] MEDS ORDERED: LACTATED RINGER'S 1,000 ML IV SCH (01:32)
[2023-03-14] MEDS ORDERED: LEVOTHYROXINE SODIUM 100 MCG TABLET PO SCH (06:30)
[2023-03-14 07:32] LABS: BUN Creatinine Ratio 18.5 (10-20); Calcium 8.4 mg/dl (8.6-10.3); Creatinine Clr Calc Pharmacy 76.1 ml/min; Est GFR (African American) 106.2 ml/min; Est GFR (Non-African American) 91.7 ml/min; Potassium 3.8 mmol/L (3.5-5.1)
[2023-03-14 07:36] LABS: Estimated Average Glucose 163 mg/dl; Hemoglobin A1C 7.3 % (4.5-5.6)
[2023-03-14 07:47] LABS: Thyroid Stimulating Hormone 3.277 uIu/ml (0.300-4.500)
[2023-03-14] MEDS ORDERED: CEFEPIME 2,000 MG in SYRINGE 0 ML IV SCH (08:00)
[2023-03-14] MEDS ORDERED: TACROLIMUS 0.5 MG CAP PO SCH (09:00)
[2023-03-14] MEDS ORDERED: METOPROLOL SUCC 50MG EXT REL TAB PO SCH (09:00)
[2023-03-14] MEDS ORDERED: amLODIPine BESYLATE 5 MG TAB PO SCH (09:00)
[2023-03-14] MEDS ORDERED: GABAPENTIN 300 MG CAP PO SCH (09:00)
[2023-03-14] MEDS ORDERED: VALSARTAN 80 MG TAB PO SCH (09:00)
[2023-03-14] MEDS ORDERED: LANTUS PER UNIT CHARGE SQ SCH (09:00)
[2023-03-14] MEDS ORDERED: ENOXAPARIN INJ 40 MG/0.4 ML SYR SQ SCH (09:00)
[2023-03-14] MEDS ORDERED: MYCOPHENOLATE MOFETIL 250 MG CAP PO SCH (09:00)
[2023-03-14] MEDS ORDERED: predniSONE 2.5 MG TAB PO SCH (09:00)
[2023-03-14] MEDS: INSULIN ASPART PER UNIT CHARGE SC SCH ×2 (09:52→14:14)
[2023-03-14] MEDS ORDERED: CHOLECALCIFEROL 5,000 UNITS 125 MCG TAB PO SCH (11:30)
[2023-03-14] MEDS ORDERED: MAGNESIUM OXIDE 400 MG TAB PO SCH (11:30)
[2023-03-14] MEDS ORDERED: CALCIUM CARBONATE 500 MG CHEWABLE TAB PO SCH (11:30)
--- NOTE | 2023-03-14 12:54 | Urology Consultation ---
Date of Consultation March 14, 2023 Assessment & Plan (1) Hydronephrosis of kidney transplant: (2) Acute UTI (urinary tract infection): 77 yo F with history of kidney transplant, hydronephrosis, frequent UTI presented to the ED on 03/13/23 for evaluation of several day history of urinary symptoms and weakness and was admitted for elevated INR, acute hyponatremia and complicated UTI. Patient is afebrile and hemodynamically stable Labs showcreatinine 0.54, WBC 12.1, hemoglobin 11.4, sodium 131, INR 4.0 UA on arrival was positive for nitrates and bacteria Urine culture pending Outside urine culture from 03/10 grew out Serratia marcescenssensitive to current cefepime Continue broad-spectrum antibiotics and narrow per sensitivity data when available CT reviewed and discussednotable for severe hydronephrosis of the left lower quadrant renal transplant with some calcifications noted, appears similar to prior CT She previously had trial of [place] catheter without improvement of hydronephrosis Previous outpatient discussion regarding ureteroscopy versus nephrostomy for further evaluation/management She is scheduled for cystoscopy, ureteroscopy and possible stent placement with Dr. Higginbotham on 03/23 Recommend continue antibiotics, supportive care and medical management per hospital medicine Warfarin currently on hold due to supratherapeutic INR No acute intervention at this time If her other acute issues stabilize and she is medically optimized, can consider cystoscopy and ureteroscopy on 03/[address] Higginbotham will follow peripherally History of Present Illness Reason for Consultation: hydronephrosis of transplanted kidney Attending Physician: Giuliano Vivar DO History of Present Illness 77-year-old female with past medical history of hyperlipidemia, hypertension, diabetes, peripheral vascular disease, lumbar radiculopathy, history of mitral valve replacement on Coumadin, and kidney transplant (1997, 2003), [place] left kidney removed due to infection in 2019 who presented to the ED on 03/13/23 for evaluation of several day history of urinary symptoms, weakness and chills. On arrival, she was afebrile and hemodynamically stable. Lab work reviewed and showed creatinine 0.74, sodium 127, WBC 12.1, hemoglobin 11.4, INR 6.2. Urinalysis showed 1+ protein, 2+ glucose, 1+ ketones, 3+ blood, positive nitrates, 3+ leukocyte esterase, >30 WBC, 10-20 epithelial cells, 4+ bacteria. CT abdomen pelvis notable for severe hydronephrosis within the left lower quadrant renal transplant with calculi, marked atrophy of the [place] right kidney, left [place] kidney surgically absent. ED course: IV fluids, ceftriaxone. She was admitted for acute hyponatremia, elevated INR, and suspected UTI. Urology is consulted for hydronephrosis of transplanted kidney. Patient is known to our service. Follows with Dr. Higginbotham for urology care locally. Her kidney transplant center is [facility]. Hx of recurrent UTIs. She underwent workup for UTIs and was found to have hydronephrosis of her transplant kidney. She had [place] catheter for a period of time without improvement of her hydronephrosis. She is scheduled for cystoscopy and ureteroscopy in OR with Dr. Higginbotham on 03/23/23 for further evaluation of hydronephrosis. She had a preoperative urine culture done at [facility] on 03/10. She began to develop urinary symptoms that day including dysuria, frequency and hematuria. Urine culture on 03/10 grew out Serratia marcescens. She was started on oral Ciprofloxacin 03/13, but presented to the emergency department due to ongoing feelings of weakness. Today's labsINR 4.0, sodium 131, creatinine 0.54, WBC 12.10 hemoglobin 11.4, urine culture pending. Currently on IV cefepime. Patient seen and examined in the emergency department. Daughter at bedside. Patient is awake, alert and resting in litter. She is feeling better since arrival. Currently comfortable, denies flank or abdominal pain. No dysuria or hematuria at present. She noted hematuria on 03/10, also noted gritty urine at that time and feels she may have passed stones. No nausea or vomiting. Allergies Allergy/AdvReac Type Severity Reaction Status Date / Time Sulfa (Sulfonamide Allergy Intermediate RASH & ITCH Verified 03/14/23 00:17 Antibiotics) bee venom protein (honey bee) Allergy Unknown UNKNOWN Verified 03/14/23 00:17 sulfamethoxazole Allergy Unknown Rash Verified 03/14/23 00:17 [From Bactrim] trimethoprim [From Bactrim] Allergy Unknown Rash Verified 03/14/23 00:17 Home Medications Medication Instructions Recorded Confirmed Type aspirin 81 mg tablet,delayed 81 mg PO QPM 02/26/20 03/14/23 History release atorvastatin 20 mg tablet 20 mg PO QPM 02/26/20 03/14/23 History calcium carbonate 200 mg calcium 1,000 mg PO QDL 02/26/20 03/14/23 History (500 mg) chewable tablet (Tums) insulin aspar prt-insulin aspart 1 sliding scale dose subcut 02/26/20 03/14/23 History 100 unit/mL (70-30) subcutaneous USEASDIRECTD soln (Novolog Mix 70-30 U-100 Insuln) levothyroxine 100 mcg capsule 100 mcg PO QAM 02/26/20 03/14/23 History prednisone 2.5 mg tablet 2.5 mg PO QAM 02/26/20 03/14/23 History tacrolimus 0.5 mg capsule, 1 mg PO QAM 02/26/20 03/14/23 History immediate-release amlodipine 2.5 mg tablet 5 mg PO BID 12/28/22 03/14/23 History gabapentin 300 mg capsule 300 mg PO QAM 12/28/22 03/14/23 History insulin detemir U-100 100 unit/mL 10 unit subcut QAM 12/28/22 03/14/23 History (3 mL) subcutaneous pen (Levemir FlexPen) magnesium oxide 400 mg PO QDL 12/28/22 03/14/23 History metoprolol succinate 50 mg capsule 50 mg PO BID 12/28/22 03/14/23 History sprinkle, ext. release 24 hr mycophenolate mofetil 250 mg 250 mg PO BID 12/28/22 03/14/23 History capsule valsartan 160 mg tablet 160 mg PO BID 12/28/22 03/14/23 History Lactobacillus rhamnosus GG 10 1 cap PO DAILYBL 03/14/23 03/14/23 History billion cell capsule (Culturelle) cholecalciferol (vitamin D3) 50 50 mcg PO DAILYBL 03/14/23 03/14/23 History mcg (2,000 unit) tablet ciprofloxacin HCl 250 mg tablet 250 mg PO BID 03/14/23 03/14/23 History cranberry extract 650 mg capsule 1,300 mg PO DAILYBL 03/14/23 03/14/23 History (Theracran) warfarin 2 mg tablet 4 mg PO QPM 03/14/23 03/14/23 History Patient History Medical History Atrial flutter Heart valve disease pt is s/p mechanical mitral valve replacement. most recent ECHO 01/24/23: mitral valve: mild paravalvular regurgitation. moderately calcified AV cusps with decreased systolic ecxursion. likely moderate to severe, low flow/low gradient stenosis (MANOLO 0.81cm2) Hydronephrosis of kidney transplant reason for upcoming procedure; pt had catheter placement with no signifcant improvement Osteoarthritis History of degenerative disc disease Spinal stenosis Fistula hx LUE AVF History of hemodialysis on HD x 2 years prior to renal transplant History of end stage renal disease hx ESRD and HD previously; pt is s/p left renal transplant. Follows with Dr. Benitez, [facility]. DM type 2 (diabetes mellitus, type 2) IDDM Wears hearing aid in both ears Peripheral Vascular Disease Hypothyroidism Hyperlipidemia Hypertension Surgical History History of wisdom tooth extraction History of cataract surgery History of mitral valve replacement mechanical; Follows with Dr. Luca Coley History of colonoscopy History of kidney transplant Left. 1997, 2003. ([place] kidney removed due to infection 2018) Family History Father Prostate cancer Social History Smoking Status: Never smoker Second Hand Exposure: No; Do You Dip or Chew Tobacco: No; Hx Alcohol Use: No Hx Substance Use: No Preferred Language: Malay Communication Ability: Effective Environmental Change Analyst Required: No Beliefs That Will Affect Care: None marital status: Current Living Situation: Spouse current occupational status: retired Feels Safe at Home: Yes Safety Concerns: Feels Safe At This Time Assistive Devices: Cane, Glasses and Hearing Aid - Bilateral Review of Systems Review of Systems: All systems reviewed & are unremarkable except as noted in HPI & below Physical Exam Physical Exam: General: well-appearing, no acute distress HEENT: Normocephalic, mucous membranes moist Pulmonary: Nonlabored respirations Abdomen: Nondistended Extremities: Moves all 4 spontaneously Neuro: No gross deficits Psych: alert and oriented, normal mood Skin: Warm, dry, no rashes noted Results & Data Vital Signs (Past 12 Hours) Vital Signs Temp Pulse Pulse Resp BP BP Pulse Ox 03/14/23 11:52 74 136/56 L 95 03/14/23 07:23 83 03/14/23 06:02 93 H 19 154/66 H 93 03/14/23 04:28 90 20 161/85 H 94 03/14/23 02:12 37.0 C 98 H 24 131/65 94 O2 Del Method 03/14/23 11:52 Room Air 03/14/23 07:23 03/14/23 06:02 Room Air 03/14/23 04:28 Room Air 03/14/23 02:12 Room Air PG Care Time/CCT Total # of Minutes Spent Total Time Spent with Patient: Total time spent is greater than 50% in coordination of care (as documented) at patient's floor/unit and/or counseling patient: Coding Level of Care Code 90422 IN/OBS CONSULT LVL 4,60M Diagnoses Hydronephrosis of kidney transplant T86.19; N13.30 Acute UTI (urinary tract infection) N39.0
--- NOTE | 2023-03-14 13:30 | Communication Note ---
Date of Service: March 14, 2023 By CMS guidelines, a determination that the admission or continued stay is not medically necessary has been made by a member of the UR committee and a ph ysician for this hospital stay, therefore a Code 44 will be completed and the Inpatient admission will be changed to outpatient.
--- NOTE | 2023-03-14 18:06 | Discharge Summary ---
Date of Service March 14, 2023 Admission HPI Per Admitting Provider Ida is a 77-year-old woman with history of left renal transplant on immunosuppressive therapy, heart valve disease (s/p mechanical mitral valve replacement on warfarin), atrial flutter, peripheral vascular disease, type 1 diabetes, hypothyroidism, hypertension, and hyperlipidemia, who presents for urinary frequency, and concern for UTI. Patient provided urine sample last week, the culture was still pending. She was started on antibiotics earlier today but presented to the hospital due to lethargy, chills. She denies fevers, abdominal pain, burning on urination. In the ED, vitals were stable. CBC was notable for WBC-12.10, INR-6.2, and hyponatremia-127. UA showed hematuria, + leukocyte esterase, + nitrites, + significant bacteriuria. CT A/P showed moderate to severe hydronephrosis of transplanted left kidney. She received a 1 L NS bolus, and a dose of IV cefepime 2 g. Hospitalist service was then consulted for admission. On admission, patient corroborated ED HPI. She denies fevers, chills, abdominal pain, or burning on urination, though she does report hematuria, and urinary frequency. Principal Diagnosis Complicated UTI in the setting of transplant kidney/immunosuppression Discharge Exam in general she is awake and alert pleasant no distress. HEENT normocephalic atraumatic mucous membranes moist. Breathing unlabored no accessory muscle use good effort. Skin shows no rashes no pallor or icterus. Neuro without focal deficits. Discharge Data Allergies Allergy/AdvReac Type Severity Reaction Status Date / Time Sulfa (Sulfonamide Allergy Intermediate RASH & ITCH Verified 03/14/23 00:17 Antibiotics) bee venom protein (honey bee) Allergy Unknown UNKNOWN Verified 03/14/23 00:17 sulfamethoxazole Allergy Unknown Rash Verified 03/14/23 00:17 [From Bactrim] trimethoprim [From Bactrim] Allergy Unknown Rash Verified 03/14/23 00:17 Consultations 03/13/23 22:44 ED Decision to Admit Stat 03/14/23 03:05 Consult Urology Routine Ordered Studies 03/13/23 20:00 CT abd pelvis wo con Stat Hospital Course (1) Acute UTI (urinary tract infection): 77 F with PMH left renal transplant on immunosuppressive therapy, atrial flutter, hypertension, hyperlipidemia, hypothyroidism, presenting for UTI. Acute UTI -Afebrile. Symptomatic (dysuria, hematuria). Confirmed on urinalysis. - Started on cefepime, initially discussed with patient and her daughter plan to follow for culture, but patient and daughter both expressed a strong desire for patient to get homenoted that she had been prescribed Cipro as an outpatient, and the main reason she ended up coming to the ER was because she had been ill with nausea and vomiting (attributed to the UTI) so she was not really able to eat and drink welland they would much prefer for her to be home, particularly given her immunosuppression. They understand the current culture results may require change in treatment, and that I may need to call her back to change the treatment, but are willing to accept that uncertainty/risk. Given that she is not septic, given that she is feeling better, given that they have antibiotics prescribed by the physician who has her prior urine culture on record, and given that they understand the risk/benefit of this decision, it appears quite reasonable to let her go home with close outpatient follow-up. Supratherapeutic INR -INR 6.2 on admission. Down to 4.0 today. Follows with [facility] anticoagulation clinic. Hold Coumadin today, repeat INR with anticoagulation clinic tomorrow. Acute hyponatremia - Appears asymptomatic, probably from nausea vomiting/poor p.o. intake. If SIADH mediated, likely was acutely due to low volume status leading to fluid retention. Improving. Outpatient labs, normal p.o. intake should suffice. S/p left renal transplant + hydronephrosis -On mycophenolate 250 mg twice daily, tacrolimus 1 mg daily, prednisone 2.5 mg daily - Urology consult appreciated, to follow-up in urology clinic 03/16. Hypertension -Chronic. Managed with valsartan 160 mg twice daily, amlodipine 5 mg twice daily. * Continue home regimen Diabetes mellitus - Home insulin. Hyperlipidemia -Chronic. On atorvastatin 20 mg every afternoon. * Continue home regimen GERD Heart valve disease -Chronic. S/p mechanical mitral valve replacement. On warfarin 4 mg every afternoon, aspirin 81 mg every afternoon, metoprolol succinate 50 mg twice daily -Warfarin held on admission for supratherapeutic INR 6.2. See above otherwise Hypothyroidism -Chronic. Managed on levothyroxine 100 mcg daily. * Continue home regimen. * TSH 3.277 Lumbar radiculopathy -Chronic. On gabapentin 300 mg daily. -Sees [facility]. Review of chart reveals epidural injection recently considered but deferred due to renal, cardiac comorbidities. * Continue home gabapentin Code: Full code Dispo: Med-Surg telemetry FEN/GI: Carb consistent DVT Prophylaxis: Lovenox 40 mg q24h PT/OT: Yes Consults: Urology Case Management: No stable for home (2) Elevated INR: (3) Acute hyponatremia: (4) Hypertension: (5) Hyperlipidemia: (6) DM type 2 (diabetes mellitus, type 2): (7) Heart valve disease: (8) Hypothyroidism: (9) Lumbar radiculopathy: Total Time Total Time Spent Total Time Spent (In Minutes): <30 Discharge Plan Discharge Items Patient Disposition: Home - Self-Care Reason For Visit: URINARY SYMPTOMS Discharge Diagnosis: urinary tract infection Activity: Resume your previous activity Non-emergency contact: Primary Care Provider and Urologist Call non-emergency contact if: you have any medication questions Follow-up/Referrals: Joe Quesada, [Primary Care Provider] - Diet: Regular Addtl Attending Provider Instructions: urinary tract infection: take the cipro you were prescribed. i'll keep an eye on your current culture - and on the small but real chance we would need to change antibiotics i'll get in touch with you hydronephrosis - follow up with urology for the scope procedure as scheduled elevated INR - was 6.2, now down to 4.0. I would not take coumadin at all today, and then have the coumadin clinic you follow with guide you from there. ideally your next INR check should be tomorrow low sodium - this was almost certainly just due to poor oral intake - i expect it to self correct. to be on the safe side, i'd recommend labwork (basic metabolic panel/BMP) next week with results to your primary care doc Pending Studies at Discharge: Yes Studies:: urine culture Stand-Alone Forms: [facility] [employer], Smoking Cessation Medications and DC Order Prescriptions: Continued tacrolimus 0.5 mg capsule 1 mg PO QAM levothyroxine 100 mcg capsule 100 mcg PO QAM aspirin 81 mg tablet,delayed release (DR/EC) 81 mg PO QPM insulin asp prt-insulin aspart [Novolog Mix 70-30 U-100 Insuln] 100 unit/mL (70-30) solution 1 sliding scale dose subcut USEASDIRECTD calcium carbonate [Tums] 200 mg calcium (500 mg) tablet,chewable 1,000 mg PO QDL atorvastatin 20 mg tablet 20 mg PO QPM prednisone 2.5 mg tablet 2.5 mg PO QAM metoprolol succinate 50 mg capsule,sprinkle,ER 24hr 50 mg PO BID mycophenolate mofetil 250 mg capsule 250 mg PO BID amlodipine 2.5 mg tablet 5 mg PO BID valsartan 160 mg tablet 160 mg PO BID gabapentin 300 mg capsule 300 mg PO QAM magnesium oxide 400 mg magnesium capsule 400 mg PO QDL Levemir FlexPen 100 unit/mL (3 mL) insulin pen 10 unit subcut QAM Rx Instructions: 10 units warfarin 2 mg tablet 4 mg PO QPM ciprofloxacin HCl 250 mg tablet 250 mg PO BID Rx Instructions: begin 03/13/23 x 7 days cholecalciferol (vitamin D3) 50 mcg (2,000 unit) Tablet 50 mcg PO DAILYBL Culturelle 10 billion cell Capsule 1 cap PO DAILYBL Theracran 650 mg Capsule 1,300 mg PO DAILYBL Rx Instructions: administer with a meal Discharge Orders: Discharge Order (Routine); Ordered 03/14/23 Ordered By: Giuliano Stephen/Other Patient Handouts: Managing Type 2 Diabetes Admission Data Admit Date/Time: 03/14/23 00:36 Attending Provider: Giuliano Vivar Admit Provider: Joce Guerra Primary Care Provider: Joe Quesada Other Providers: Luis Jefferson; Michael Lynch; Anita Aguilar Christopher T.; Meli Brower; Anselmo Higginbotham; Muna Whitehead Melissa A.; Tian Petersen; Kiara Hair; Chidi Carias; Andrew Frausto Other Interventions: Discharge Summary Assessment (RN) Last Done: 03/14/23 14:49 Coding Level of Care Code 30839 IN/OBS DISCH 30 MIN/LESS Diagnoses Acute UTI (urinary tract infection) N39.0 Elevated INR R79.1 Acute hyponatremia E87.1 Hypertension I10 Hyperlipidemia E78.5 DM type 2 (diabetes mellitus, type 2) E11.9 Heart valve disease I38 Hypothyroidism E03.9 Lumbar radiculopathy M54.16
--- NOTE | 2023-03-14 19:20 | Billing Data ---
Date of Service March 14, 2023 Coding Level of Care Code 06341 INT INP/OBS CARE
[2023-03-14] MEDS ORDERED: ASPIRIN 81 MG ECTAB PO SCH (21:00)
[2023-03-14] MEDS ORDERED: ATORVASTATIN 20 MG TAB PO SCH (21:00)
--- OUTSIDE RECORDS SUMMARY | 2023-03-18 12:34 | External Medical Summary | Summary of Care ---
Author Name Unknown Organization [facility] Address [address] [place] [address] Phone [phone] Care Team Providers Care School Bus Technician Name Role Phone Joe Quesada Primary Care Provider [phone] Encounter Details Date Type Department Care Team (Late st Contact Info) Description 03/10/2023 Orders Only Laboratory [facility], [address] [address] Vera Aguilar CRNP [address] [place] [address] Aftercare following organ transplant*; Kidney replaced by transplant; Encounter for long-term (current) use of other medications; Radiotherapy follow-up Allergies Active Allergy Reactions Criticality Noted Date Comments Sulfa Antibiotics Itching,Rash Low 02/05/2016 Sulfonylureas 07/04/2003 Wasp Venom Protein 09/27/2006 documented as of this encounter (statuses as of 03/10/2023) Medications Medication Sig Dispensed Refills Start Date End Date Status TOPROL XL 25 MG PO TB24 1 daily 0 07/28/2005 Active LIPITOR 20 MG PO TABS daily 0 Active HYDROCHLOROTHIAZIDE 12.5 MG PO TABS daily 0 Active VITAMIN D 400 UNIT PO CAPS 2000 units daily 0 Active TUMS 500 MG PO CHEW daily 0 Activ e NOVOLIN N 100 UNIT/ML SUBQ SUSP 6 units breakfast,3 units lunch, 5 units dinner 0 Active LEVEMIR 100 UNIT/ML SUBQ SOLN 14 units every morning. 0 Active MAGNESIUM 400 MG PO CAPS 1 tab daily 0 Active CRANBERRY 1000 MG PO CAPS 1 daily 0 Active mycophenolate mofetil (CELLCEPT) 250 MG Capsule Take 3 Capsules by mouth in the morning and 3 Capsules before bedtime. 0 Active tacrolimus (PROGRAF) 0.5 MG Capsule Resume prior home dose of 0.5mg in AM and 1.0mg in evening 1 Cap 0 2015 Active PredniSONE (DELTASONE) 2.5 MG Tablet Take 1 Tab by mouth daily. 1 Tab 0 2015 Active Additional Information Patient taking differently: 5 mgOral Daily(AM), Reported on 02/06/2023 levothyroxine (LEVOXYL) 100 MCG Tablet Take 1 Tab by mouth daily first thing in the morning. (at least 30 min prior to breakfast or other meds) 1 Tab 0 2015 Active metFORMIN ER (GLUCOPHAGE XR) 500 MG [id number] ce daily Indications: twice daily 0 Active Warfarin Sodium (WARFARIN CHECK DAILY DOSE, PROVIDER MANAGED,) 0 Active aspirin 81 MG chewable tablet Take 1 Tab by mouth daily. 30 Tab 0 06/12/2018 Active lisinopril (PRINIVIL) 20 MG Tablet Take 1 Tab by mouth daily. 30 Tab 0 06/12/2018 Active Additional Information Patient not taking.Reported on 02/06/2023 Gabapentin 600 MG Oral Tablet (NEURONTIN) TAKE 1 TABLET BY MOUTH EVERYDAY AT BEDTIME 0 03/24/2020 Active Denosumab 60 MG/ML Subcutaneous Solution Prefilled Syringe (Prolia) Start: 05/28/20 13:31:00 EST 0 05/28/2020 Active Gabapentin 300 MG Oral Capsule (Neurontin) 2 capsules three times a day 0 11/11/2020 Active Lidocaine 4 % External Patch (Aspercreme) Place topically on the skin 1 Patch in the morning. 30 Patch 0 10/14/2021 Active Additional Information Patient not taking.Reported on 11/30/2022 amLODIPine Besylate 2.5 MG Oral Tablet (Norvasc) Take 1 Tablet by mouth in the morning. 0 12/01/2021 Active Valsartan 320 MG Oral Tablet (Diovan) Take 1 Tablet by mouth in the morning. 0 12/20/2021 Active Fluticasone Propionate 50 MCG/ACT Nasal Suspension (Flonase)Indication s:Acute rhinitis Administer 2 Sprays into each nostril in the morning. 18.2 mL 0 04/20/2022 Active Additional Information Patient not taking.Reported on 11/30/2022 Benzonatate 100 MG Oral Capsule (Tessaljorge l Perlhorace)Indications: Acute cough Take 1 Capsule (100 mg) by mouth 3 times a day as needed for Cough. Do not cut, crush, or chew. 50 Capsule 1 04/20/2022 Active Cholecalciferol 50 MCG (2000 UT) Oral Capsule Take 1 Capsule by mouth. 0 Active NovoLOG FlexPen 100 UNIT/ML Subcutaneous Solution Pen-injector INJECT 9 UNITS UNDER THE SKIN 3 TIMES/DAY W/MEALS. BG<100 GIVE HALF. BG<90 OR NOT EATING-DO NOT GIVE 0 04/27/2022 Active RA Probiotic Digestive Care Oral Capsule Take by mouth. 0 Active Nystatin [id number] UNIT/GM External Cream 2 times a day. To affected area. 0 04/12/2022 Active Metoprolol Succinate ER 50 MG Oral Tablet Extended Release 24 Hour (toPROL XL) Take 1 Tablet by mouth in the morning and 1 Tablet before bedtime. 0 06/12/2022 Active Valsartan 160 MG Oral Tablet (Diovan) TAKE 1 TABLET (160 MG TOTAL) BY MOUTH TWICE A DAY. 0 04/27/2022 Active Warfarin Sodium 2 MG Oral Tablet (Coumadin) TAKE 1 TABLET BY MOUTH EVERY DAY DIRECTED 0 06/09/2022 Active Ciprofloxacin HCl 500 MG Oral Tablet (Cipro) 0 11/29/2022 Active documented as of this encounter (statuses as of 03/10/2023) Active Problems Problem Noted Date Diagnosed Date History of actinic keratoses 01/04/2016 Diplopia 07/16/2015 Overview: Due to concussion Cerebellar contusion 07/14/2015 Intracranial bleed 07/14/2015 Recent head injury 07/14/2015 H/O mitral valve replacement 12/31/2013 Living related donor renal transplant 05/16/2013 HTN, goal below 140/90 05/16/2013 HTN, GOAL BELOW 140/80 12/26/2011 Overview: Per HTN Protocol #27. Type 2 diabetes mellitus wit h hemoglobin A1c goal of less than 7.0% 03/05/2009 Overview: Per Diabetes Taxonomy. ICD-10 update of inactive term DM TYPE 2 CAUSING EYE DZ 03/05/2009 Overview: Per Diabetes Taxonomy. 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 Actinic keratosis 02/11/2009 01/04/2016 Type 2 diabetes mellitus wit h hemoglobin A1c goal of less than 7.0% 07/05/2003 03/05/2009 Overview: Per Diabetes Taxonomy. ICD-10 update of inactive term HTN, goal below 140/90 06/03 Overview: Per HTN Taxonomy. DM type 2 causing eye disease 03/05/2009 Overview: Per Diabetes Taxonomy. documented as of this encounter (statuses as of 03/10/2023) Immunizations Name Administration Dates Next Due COVID-19 mRNA, LNP-s, No Pre serve, 2-Dose Series (Moderna) 01/02/2021,07/05/2020,06/02/2020 COVID-19, mRNA, LNP-s, PF, B ooster, 100mcg/0.5mg (Moderna) 07/05/2021 Covid-19, Mrna, Lnp-s, Pf, B ivalent, 30 Mcg, IM, 12 yrs and above (Pfizer) 05/05/2022 Seasonal Influenza, Split, I IV3, With Preserve, Inj 02/20/2013 documented as of this encounter Social History Tobacco Use Types Packs/Day Years Used Date Smoking Tobacco: Never Smokeless Tobacco: Never Alcohol Use Standard Drinks/Week Comments No 0 (1 standard drink = 0.6 oz pur e alcohol) Sex and Gender Information Value Date Recorded Sex Assigned at Not on file Gender Identity Not on file Sexual Orientation Not on file Job Start Date Occupation Industry Not on file Not on file Not on file documented as of this encounter Functional Status Functional Status Response Date of Assess ment Are you deaf or do you have serious difficulty h earing? No 06/09/2018 Are you blind or do you have serious difficulty seeing, even when wearing glasses? No 06/09/2018 Do you have serious difficul ty walking or climbing stairs? (5 years old or older) No 06/09/2018 Do you have difficulty dress ing or bathing? (5 years old or older) No 06/09/2018 Because of a physical, menta l, or emotional condition, do you have difficulty doing errands alone such as visiting a doctor s office or shopping? (15 years old or older) No 06/09/19 19 Cognitive Status Response Date of Assessm ent Because of a physical, menta l, or emotional condition, do you have serious difficulty concentrating, remembering, or making decisions? (5 years old or older No 06/09/2018 documented as of this encounter Plan of Treatment Upcoming Encounters Date Type Department Care Team (Late st Contact Info) Description 02/13/2024 10:40 AM EDT Office Visit Dermatology, Eva Molina [address] [place] [id number] Suzy Beaulieu PA-C [address] [place] [phone] Scheduled Orders Name Type Priority Associated Diagnoses Orde r Schedule CBC WITH WBC DIFFERENTIAL Lab Routine Aftercare following organ transplant Kidney replaced by transplant Encounter for long-term (current) use of other medications Radiotherapy follow-up Every 3 Months for 99 Occurrences starting 03/10/2023 until 03/10/2024 MAGNESIUM Lab Routine Aftercare following organ transplant Kidney replaced by transplant Encounter for long-term (current) use of other medications Radiotherapy follow-up Every 3 Months for 99 Occurrences starting 03/10/2023 until 03/10/2024 TACROLIMUS LEVEL Lab Routine Aftercare following organ transplant Kidney replaced by transplant Encounter for long-term (current) use of other medications Radiotherapy follow-up Every 3 Months for 99 Occurrences starting 03/10/2023 until 03/10/2024 BASIC METABOLIC PANEL Lab Routine Aftercare following organ transplant Kidney replaced by transplant Encounter for long-term (current) use of other medications Radiotherapy follow-up Every 3 Months for 99 Occurrences starting 03/10/2023 until 03/10/2024 PHOSPHORUS Lab Routine Aftercare following organ transplant Kidney replaced by transplant Encounter for long-term (current) use of other medications Radiotherapy follow-up Every 3 Months for 99 Occurrences starting 03/10/2023 until 03/10/2024 Scheduled Procedures Name Priority Associated Diagnoses Date/Ti me COLONOSCOPY FLEXIBLE PROXIMAL DIAGNOSTIC Recall Colon cancer screening Health Maintenance Due Date Last Done Comments Pneumococcal Vaccine: 65+ Years (1 - PCV) 1952 Depression Screening 1958 Diabetic Foot Exam 1964 Hepatitis C Screening 1964 DTaP,Tdap,and Td Vaccines (1 - Tdap) 1965 Zoster Vaccines (1 of 2) 1965 Hepatitis B (1 of 3 - Risk 3-dose series) 2006 Diabetic Eye Exam 05/11/2012 05/11/2011, , 12/24/2008, Additional history exists COVID-19 Vaccine ( season) 2023 05/05/2022, 07/05/2021, 01/02/2021, Additional history exists Influenza Vaccine (FLU shot) (#1) 2023 02/20/2013 HbA1c 08/11/2023 02/09/2023, 12/08, 11/09/2022, Additional history exists Albumin/Creatinine Ratio 10/11/20232 023, 11/23/2021, 08/19/2021, Additional history exists TSH 02/10/2024 02/09/2023, 12/08, 11/09/2022, Additional history exists GFR 03/09/2024 03/09/2023, 0 09/2022, 02/09/2023, Additional history exists DXA Scan 09/01/2029 09/01/2022, 0 10/2019, 03/12/2018, Additional history exists Colonoscopy Discontinued 03/16/2016, 03/16/2016 Colorectal Cancer Screening Discontinued Cologuard Discontinued Fecal Occult Blood Test Discontinued GARDASIL-HPV IMMUNIZATION SERIES Aged Out No longer eligible based on patient's age to complete this topic MENINGOCOCCAL (MENACTRA/MENVEO) Aged Out No longer eligible based on patient's age to complete this topic Sigmoidoscopy Discontinued documented as of this encounter Medical Devices Not on filedocumented as of this encounter Visit Diagnoses Diagnosis Aftercare following organ transplant- Primary Kidney replaced by transplant Encounter for long-term (current) use of other medications Radiotherapy follow-up Radiotherapy follow-up examination documented in this encounter Advance Directives Latest Code Status on File Code Status Date Activated Date Inactivated Comments Full Code 06/09/2018 1:38 PM 06/12/2018 7:14 PM This or boogie reflects the patients wishes and were consensually agreed upon. Question Answer Comments Discussion of Advance Directives occurred with: Not Discussed Does the patient have a Living Will? No Does the patient have Health Care Power of Milling Operator? No Code Status History Code Status Date Activated Date Inactivated Comments Full Code 07/14/2015 7:04 PM 2015 2:45 PM This o rder reflects the patients wishes and were consensually agreed upon. Question Answer Comments Discussion of Advance Directives occurred with: Patient Does the patient have a Living Will? No Does the patient have Health Care Power of Milling Operator? No Care Teams School Bus Technician Relationship Specialty Start Date End Date Joe Quesada DO [address] [place] [address] PCP - General Family Medicine 08/03/12 documented as of this encounter
--- OUTSIDE RECORDS SUMMARY | 2023-03-18 12:34 | External Medical Summary ---
Author Name Unknown Address Unknown Organization [id number]:[facility] - [address] [place] [address] Laboratory Report Ordering Provider Test Date Status TAMEKA MCKNIGHT 02/11/2023 14:28:53 Final Observation Date Value Abnormality Reference (Units ) Status RBC, Urine 02/11/2023 14:28:53 6-9 Abnormal 0-2 (/HPF) Final WBC, Urine 02/11/2023 14:28:53 50+ Abnormal 0-2 (/HPF) Final Bacteria [#/area] in Urine sediment by Microscopy high power field 02/11/2023 14:28:53 >200 Abnormal 0-25 (/HPF) Final Performing Location [facility] - [address] [place] [address]
--- OUTSIDE RECORDS SUMMARY | 2023-03-18 12:34 | External Medical Summary ---
Author Name Unknown Address Unknown Organization K01:[facility] [place] - [address] [place] [address] Laboratory Report Ordering Provider Test Date Status BOZENA HIGHTOWER 03/10/2023 07:26:36 Final Observation Date Value Abnormality Reference (Units ) Status BUN 03/10/2023 07:26:36 14 6-20 (mg/dL) Final Creatinine 03/10/2023 07:26:36 0.7 0.5-1.0 (mg/dL) Final Glomerular filtration rate/1.73 sq M.predicted [Volume Rate/Area] in Serum, Plasma or Blood by Creatinine-based formula (CKD-EPI) 03/10/2023 07:26:36 90 >=60 (mL/min) Final eGFR is calculated based on the CKD-EPI 2020 equation SODIUM 03/10/2023 07:26:36 135 135-146 (m mol/L) Final Potassium 03/10/2023 07:26:36 4.6 3.5-5.1 (m mol/L) Final Cl 03/10/2023 07:26:36 104 98-107 (mm ol/L) Final CO2 03/10/2023 07:26:36 26 22-32 (mmo l/L) Final Anion gap 03/10/2023 07:26:36 5 Below low normal 7-1 5 (mmol/L) Final Glucose 03/10/2023 07:26:36 188 Above high normal 70 -120 (mg/dL) Final Calcium 03/10/2023 07:26:36 9.1 8.4-10.2 ( mg/dL) Final Performing Location [facility] [place] - [address] [place] [address]
--- OUTSIDE RECORDS SUMMARY | 2023-03-18 12:34 | External Medical Summary ---
Author Name Unknown Address Unknown Organization [id number]:[facility] - [address] [place] [address] Laboratory Report Ordering Provider Test Date Status ARNULFO ESCOBAR 02/20/2023 08:43:00 Final Warfarin Therapy
INR: 2 .0-3.0 conventional anticoagulation
INR: 2.5- 3.5 high intensity anticoagulation Observation Date Value Abnormality Reference (Units ) Status PT 02/20/2023 08:43:00 24.5 Above high normal 11 .6-15.2 (seconds) Final INR 02/20/2023 08:43:00 2.2 Above high normal 0. 8-1.2 Final Performing Location [facility] - [address] [place] [address]
--- OUTSIDE RECORDS SUMMARY | 2023-03-18 12:34 | External Medical Summary | Summary of Care ---
Author Name Unknown Organization [facility] Address [address] [place] [address] Phone [phone] Care Team Providers Care Train Starter Name Role Phone Joe Quesada Primary Care Provider [phone] Reason for Visit * Reason Comments Outpatient Testing Encounter Details Date Type Department Care Team (Late st Contact Info) Description 03/06/2023 9:30 AM EDT Laboratory [facility], [address] [address] [address] intermediate frame tender (current) use of anticoagulants; Heart valve transplanted Allergies Active Allergy Reactions Criticality Noted Date Comments Sulfa Antibiotics Itching,Rash Low 02/05/2016 Sulfonylureas 07/04/2003 Wasp Venom Protein 09/27/2006 documented as of this encounter (statuses as of 03/06/2023) Medications Medication Sig Dispensed Refills Start Date [...] Active metFORMIN ER (GLUCOPHAGE XR) 500 MG [id number]:twi ce daily Indications: twice daily 0 Active [...] on 11/30/2022 Benzonatate 100 MG Oral Capsule (Alayna Deng)Indications: Acute cough Take 1 Capsule (100 mg) [...] Capsule Take by mouth. 0 Active Nystatin [id number] UNIT/GM External Cream 2 times a day. [...] as of this encounter (statuses as of 03/06/2023) Active Problems Problem Noted Date Diagnosed Date [...] as of this encounter (statuses as of 03/06/2023) Resolved Problems Problem Noted Date Diagnosed Date [...] as of this encounter (statuses as of 03/06/2023) Immunizations Name Administration Dates Next Due COVID-19 [...] [address] [address] Suzy Beaulieu PA-C [address] [address] Pending Results Name Type Priority Associated Diagnoses Date /Time PT INR Lab Routine intermediate frame tender (current) use of anticoagulants Heart valve transplanted 03/06/2023 9:24 AM EDT Scheduled Procedures Name Priority Associated Diagnoses Date/Ti [...] of 3 - Risk 3-dose series) 2006 DIABETES-EYE EXAM 05/11/2012 05/11/2011, , 12/24/2008, Additional history exists COVID-19 Vaccine ( season) 2023 05/05/2022, 07/05/2021, 01/02/2021, Additional history exists Influenza Vaccine (FLU shot) (#1) 2023 02/20/2013 HbA1c 08/11/2023 02/09/2023, 12/08, 11/09/2022, Additional history exists Albumin/Creatinine Ratio 10/11/2023 023, 11/23/2021, 08/19/2021, Additional history exists GFR 02/10/2024 02/09/2023, 100 09/2022, 01/17/2023, Additional history exists TSH 02/10/2024 02/09/2023, 12/08, 11/09/2022, Additional history exists DXA Scan 09/01/2029 09/01/2022, 11/0 10/2019, 03/12/2018, Additional history exists Colonoscopy Discontinued [...] as of this encounter Visit Diagnoses Diagnosis intermediate frame tender (current) use of anticoagulants Long-term (current) use of anticoagulants Heart valve transplanted Heart valve replaced by transplant documented in this encounter Advance Directives Latest [...] the patient have Health Care Power of Team Primary Care Physician? No Code Status History Code Status Date Activated Date Inactivated Comments Full Code 07/14/2015 7:04 PM 2015 2:45 PM This o rder reflects the patients wishes and were consensually agreed upon. Question Answer Comments Discussion of Advance Directives occurred with: Patient Does the patient have a Living Will? No Does the patient have Health Care Power of Team Primary Care Physician? No Care Teams Train Starter Relationship Specialty Start Date End Date Joe Quesada DO [address] [place], [place] [id number] PCP - General Family Medicine 08/03/12 documented as of this encounter
--- OUTSIDE RECORDS SUMMARY | 2023-03-18 12:34 | External Medical Summary ---
Author Name Unknown Address Unknown Organization [id number]:LABORATORY [facility] - [address] [address] Laboratory Report Ordering Provider Test Date Status ARNULFO ESCOBAR 03/06/2023 09:24:10 Final Warfarin Therapy
INR: 2 .0-3.0 conventional anticoagulation
INR: 2.5- 3.5 high intensity anticoagulation Observation Date Value Abnormality Reference (Units ) Status PT 03/06/2023 09:24:10 39.7 Above high normal 11 .6-15.2 (seconds) Final INR 03/06/2023 09:24:10 4.1 Above high normal 0. 8-1.2 Final Performing Location LAB[facility]ATORY [facility] - [address] [address]
--- OUTSIDE RECORDS SUMMARY | 2023-03-18 12:34 | External Medical Summary ---
Author Name Unknown Address Unknown Organization [id number]:LABORATORY [facility] [place] - [address] [facility] [address] Laboratory Report Ordering Provider Test Date Status KATJAJUAN ALBERTO CORCORANROEL 02/09/2023 07:56:46 Final Observation Date Value Abnormality Reference (Units ) Status SYNC LEUKOCYTES IN BLOOD BY AUTOMATED COUNT 02/09/2023 07:56:46 7.59 4.00-10.80 (K/uL) Final Segs 02/09/2023 07:56:46 55.8 40.0-75.0 (%) Final Lymphs % 02/09/2023 07:56:46 28.9 18.0-42.0 (%) Final Monos 02/09/2023 07:56:46 11.3 Above high normal 1.0-11.0 (%) Final Eosinophils 02/09/2023 07:56:46 2.1 0.0-6.0 (%) Final Basos 02/09/2023 07:56:46 1.1 0.0-2.0 (%) Final Immature Granulocyte, Percent 02/09/2023 07:56:46 0.8 0.0-2.0 (%) Final Absolute Segs 02/09/2023 07:56:46 4.24 1.80-7.70 (K/uL) Final Lymphs, absolute 02/09/2023 07:56:46 2.19 1.00-4.80 (K/ul) Final Monos, Abs 02/09/2023 07:56:46 0.86 0.00-1.10 (K/uL) Final Eos, Abs 02/09/2023 07:56:46 0.16 0.00-0.70 (K/uL) Final Basos, Abs 02/09/2023 07:56:46 0.08 0.00-0.20 (K/uL) Final Immature Granulocytes, Number 02/09/2023 07:56:46 0.06 0.00-0.20 (K/uL) Final Performing Location LABORATORY [facility] [place] - [address] [facility] [id number]
--- OUTSIDE RECORDS SUMMARY | 2023-03-18 12:34 | External Medical Summary | Summary of Care ---
Author Name Unknown Organization [facility] Address [address] [place] [address] Phone [phone] Care Team Providers Care Retail Associate Manager Bilingual Name Role Phone Joe Quesada Primary Care Provider [phone] Reason for Visit * Reason Comments Outpatient Testing Encounter Details Date Type Department Care Team (Late st Contact Info) Description 03/10/2023 7:30 AM EDT Laboratory [facility], [address] [address] [address] Aftercare following organ transplant; Encounter for long-term (current) use of other medications; Hydronephrosis Allergies Active Allergy Reactions Criticality Noted Date [...] Active metFORMIN ER (GLUCOPHAGE XR) 500 MG [id number]:twi ce daily Indications: twice daily 0 Active [...] on 11/30/2022 Benzonatate 100 MG Oral Capsule (Tessalon Perlhorace)Indications: Acute cough Take 1 Capsule (100 [...] Capsule Take by mouth. 0 Active Nystatin [id number] UNIT/GM External Cream 2 times a day. [...] [address] [address] Suzy Beaulieu PA-C [address] [address] Pending Results Name Type Priority Associated Diagnoses Date /Time TACROLIMUS LEVEL Lab Routine Aftercare following organ transplant Encounter for long-term (current) use of other medications 03/10/2023 7:26 AM EDT BASIC METABOLIC PANEL Lab Routine Hydronephrosis 03/10/2023 7:26 AM EDT CBC WITH WBC DIFFERENTIAL Lab Routine Hydronephrosis 03/10/2023 7:26 AM EDT CBC Lab Routine Hydronephrosis 03/10/2023 7:26 AM EDT DIFFERENTIAL, AUTOMATED Lab Routine Hydronephrosis 03/10/2023 7:26 AM EDT CULTURE, URINE, QUANTITATIVE Lab Routine Hydronephrosis 03/10/2023 7:36 AM EDT Scheduled Procedures Name Priority Associated [...] shot) (#1) 2023 02/20/2013 HbA1c 08/11/2023 02/09/2023, 0805/2022, 11/09/2022, Additional history exists Albumin/Creatinine Ratio 10/11/2023 023, 11/23/2021, 08/19/2021, Additional history exists TSH 02/10/2024 02/09/2023, 083 05/2022, 11/09/2022, Additional history exists GFR 03/09/2024 03/09/2023, 0 09/2022, 02/09/2023, Additional history exists DXA Scan 09/01/2029 09/01/2022, 110 10/2019, 03/12/2018, Additional history exists Colonoscopy Discontinued [...] encounter Visit Diagnoses Diagnosis Aftercare following organ transplant Encounter for long-term (current) use of other medications Hydronephrosis documented in this encounter Advance Directives Latest [...] the patient have Health Care Power of Drop Wire Stringer? No Code Status History Code Status Date Activated Date Inactivated Comments Full Code 07/14/2015 7:04 PM 2015 2:45 PM This o rder reflects the patients wishes and were consensually agreed upon. Question Answer Comments Discussion of Advance Directives occurred with: Patient Does the patient have a Living Will? No Does the patient have Health Care Power of Drop Wire Stringer? No Care Teams Retail Associate Manager Bilingual Relationship Specialty Start Date End Date Joe Quesada DO [address] [facility] [place] [id number] PCP - General Family Medicine 08/03/12 documented as of this encounter
--- OUTSIDE RECORDS SUMMARY | 2023-03-18 12:34 | External Medical Summary ---
Author Name Unknown Address Unknown Organization [id number]:[facility] [place] - [address] [facility] [address] Laboratory Report Ordering Provider Test Date Status SAQIB CORTES 03/10/2023 07:26:36 Final 3 Months and PRN

Te st performed by Immunoassay on [employer]. Therapeutic ranges vary with type of transplant, time post-transplant, clinical protocols, and testing methodology. Results should be interpreted with clinical presentation and any signs rejection/toxicity. Observation Date Value Abnormality Reference (Units ) Status Tacrolimus (FK506) 03/10/2023 07:26:36 2.9 Below low normal 4.0-12.0 (ng/mL) Final Performing Location LABORATORY [facility] - [address] [facility] [address]
--- OUTSIDE RECORDS SUMMARY | 2023-03-18 12:34 | External Medical Summary ---
Author Name Unknown Address Unknown Organization [id number]:[facility] [place] [address] [facility] [address] Laboratory Report Ordering Provider Test Date Status TAMEKA MCKNIGHT 02/11/2023 14:28:53 Final <10,000 colonies/ml mixed no rmal emilie Observation Date Value Abnormality Reference (Units ) Status Bacteria identified in Specimen by Culture 02/11/2023 14:28:53 [id number]^SERRATIA MARCESCENS Abnormal Final >100,000 colonies/mL Serrati a marcescens
This bacterial species is known to produce a chromosomal AmpC inducible beta lactamase. Penicillin or cephalosporin use, with the exception of cefepime, may result in resistance. Performing Location [facility] - [address] [facility] [address] Ordering Provider Test Date Status TAMEKA MCKNIGHT 02/11/2023 14:28:53 Final Observation Date Value Abnormality Reference (Units ) Status Cefepime susceptibility 02/11/2023 14:28:53 <=1 Susceptible Final cefOXitin [Susceptibility] 02/11/2023 14:28:53 16 Resistant Final Ceftriaxone suceptibility 02/11/2023 14:28:53 <=1 Susceptible Final Ciprofloxacin 02/11/2023 14:28:53 <=0.25 Susceptible Final Due to serious side effects, the FDA has advised against using Ciprofloxacin to treat uncomplicated UTIs and respiratory tract infections unless there are no alternative treatment options. Gentamicin susceptibility 02/11/2023 14:28:53 <=1 Susc eptible Final TMP-SMZ susceptibility 02/11/2023 14:28:53 <=20 Suscept ible Final Test: Culture, Urine, Quanti tative
Specimen Source: Urine, Catheter
Specimen Type: Urine
Specimen Date: 02/11/2023 2:28 PM
Result Date: 02/13/2023 2:33 PM
Result Status: Final result
Abnormal: Yes
Resulting Lab: [facility]
[address]
[place] [address]

CULTURE

>100,000 colonies/mL Serratia marcescens (Abnormal)

This bacterial species is known to produce a chromosomal AmpC inducible
beta lactamase. Penicillin or cephalosporin use, with the exception of
cefepime, may result in resistance.

<10,000 colonies/ml mixed normal emilie

SUSCEPTIBILITY

Serratia marcescens
METHOD MICROBROTH DILUTIONS

CEFEPIME <=1 Susceptible
CEFOXITIN 16 Resistant
CEFTRIAXONE <=1 Susceptible
CIPROFLOXACIN <=0.25 Susceptible [1]
GENTAMICIN <=1 Susceptible
TRIMETH/SULFAMETHOXAZOLE <=20 Susceptible

[1] Due to serious side effects, the FDA has advised against using
Ciprofloxacin to treat uncomplicated UTIs and respiratory tract infections
unless there are no alternative treatment options.

null Performing Location [facility] - [address] [facility] [address]
--- OUTSIDE RECORDS SUMMARY | 2023-03-18 12:34 | External Medical Summary ---
Author Name Unknown Address Unknown Organization [id number]:LABORATORY [facility] [place] - [address] [facility] [address] Laboratory Report Ordering Provider Test Date Status BOZENA HIGHTOWER 03/10/2023 07:26:36 Final Observation Date Value Abnormality Reference (Units ) Status SYNC LEUKOCYTES IN BLOOD BY AUTOMATED COUNT 03/10/2023 07:26:36 6.75 4.00-10.80 (K/uL) Final Segs 03/10/2023 07:26:36 48.3 40.0-75.0 (%) Final Lymphs % 03/10/2023 07:26:36 34.1 18.0-42.0 (%) Final Monos 03/10/2023 07:26:36 12.6 Above high normal 1.0-11.0 (%) Final Eosinophils 03/10/2023 07:26:36 3.7 0.0-6.0 (%) Final Basos 03/10/2023 07:26:36 1.2 0.0-2.0 (%) Final Immature Granulocyte, Percent 03/10/2023 07:26:36 0.1 0.0-2.0 (%) Final Absolute Segs 03/10/2023 07:26:36 3.26 1.80-7.70 (K/uL) Final Lymphs, absolute 03/10/2023 07:26:36 2.30 1.00-4.80 (K/ul) Final Monos, Abs 03/10/2023 07:26:36 0.85 0.00-1.10 (K/uL) Final Eos, Abs 03/10/2023 07:26:36 0.25 0.00-0.70 (K/uL) Final Basos, Abs 03/10/2023 07:26:36 0.08 0.00-0.20 (K/uL) Final Immature Granulocytes, Number 03/10/2023 07:26:36 0.01 0.00-0.20 (K/uL) Final Performing Location LABORATORY [facility] - [address] [facility] [id number]
--- OUTSIDE RECORDS SUMMARY | 2023-03-18 12:34 | External Medical Summary ---
Author Name Unknown Address Unknown Organization [id number]:LABORATORY [facility] [place] - [address] [place] [address] Laboratory Report Ordering Provider Test Date Status MARIA COLVIN 02/09/2023 07:56:46 Final PLEASE FAX RESULTS TO: Observation Date Value Abnormality Reference (Units ) Status TSH 02/09/2023 07:56:46 3.17 0.27-4.20 (uIU/mL) Final Performing Location LABORATORY [facility] - [address] [place] [address]
--- OUTSIDE RECORDS SUMMARY | 2023-03-18 12:34 | External Medical Summary | Summary of Care ---
Author Name Unknown Organization [facility] Address [address] [place] [address] Phone [phone] Care Team Providers Care Medical Associate Name Role Phone QuesadaAlo harrisonn Ti Primary Care Provider [phone] Reason for Visit * Reason Comments Outpatient Testing Encounter Details Date Type Department Care Team Description 02/09/2023 Laboratory [facility], [address] [address] [address] Type II diabetes mellitus with hyperosmolarity, uncontrolled (HCC); Insulin long-term use (HCC) Allergies Active Allergy Reactions Severity Noted Date Comments Sulfa Antibiotics Itching,Rash Low 02/05/2016 Sulfonylureas 07/04/2003 Wasp Venom Protein 09/27/2006 documented as of this encounter (statuses as of 02/09/2023) Medications Medication Sig Dispensed Refills Start Date [...] Active metFORMIN ER (GLUCOPHAGE XR) 500 MG DI45Xtopasmxroq:twi ce daily Indications: twice daily 0 Active [...] Capsule Take by mouth. 0 Active Nystatin [id number] UNIT/GM External Cream 2 times a day. [...] as of this encounter (statuses as of 02/09/2023) Active Problems Problem Noted Date History of actinic keratoses 01/04/2016 Diplopia 07/16/2015 Overview: Due to concussion Cerebellar contusion 07/14/2015 Intracranial bleed 07/14/2015 Recent head injury 07/14/2015 H/O mitral valve replacement 12/31/2013 Living related donor renal transplant HTN, goal below 140/90 05/16/2013 HTN, GOAL BELOW 140/80 12/26/2011 Overview: Per HTN Protocol #27. Type 2 diabetes mellitus with hemoglobin A1c goal of less than 7.0% 03/05/2009 Overview: Per Diabetes Taxonomy. ICD-10 update of inactive term DM TYPE 2 CAUSING EYE DZ 03/05/2009 Overview: Per Diabetes Taxonomy. 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 Actinic keratosis 02/11/2009 01/04/2016 Type 2 diabetes mellitus wit h hemoglobin A1c goal of less than 7.0% 07/05/2003 03/05/2009 Overview: Per Diabetes Taxonomy. ICD-10 update of inactive term HTN, goal below 140/90 0 Overview: Per HTN Taxonomy. DM type 2 causing eye disease Overview: Per Diabetes Taxonomy. documented as of this encounter (statuses as of 02/09/2023) Immunizations Name Administration Dates Next Due COVID-19 [...] = 0.6 oz pur e alcohol) Sex Assigned at Date Recorded Not on file Job Start Date Occupation [...] Plan of Treatment Upcoming Encounters Date Type Specialty Care Team Description 02/13/2024 Office Visit Dermatology Suzy Beaulieu PA-C [address] [facility] [address] [address] Pending Results Name Type Priority Associated Diagnoses Date /Time BASIC METABOLIC PANEL Lab Routine Type II diabetes mellitus with hyperosmolarity, uncontrolled (HCC) Insulin long-term use (HCC) 02/09/2023 7:56 AM EDT HEMOGLOBIN A1C Lab Routine Type II diabetes mellitus with hyperosmolarity, uncontrolled (HCC) Insulin long-term use (HCC) 02/09/2023 7:56 AM EDT TSH Lab Routine Type II diabetes mellitus with hyperosmolarity, uncontrolled (HCC) Insulin long-term use (HCC) 02/09/2023 7:56 AM EDT T4, FREE Lab Routine Type II diabetes mellitus with hyperosmolarity, uncontrolled (HCC) Insulin long-term use (HCC) 02/09/2023 7:56 AM EDT Scheduled Procedures Name Priority Associated Diagnoses Date/Ti me COLONOSCOPY FLEXIBLE PROXIMAL DIAGNOSTIC Recall Colon cancer screening Health Maintenance Due Date Last Done Comments Pneumococcal Vaccine: 65+ Years (1 - PCV) 1951 Depression Screening 1958 Diabetic Foot Exam 1964 Hepatitis C Screening 1963 DTaP,Tdap,and Td Vaccines (1 - Tdap) 1965 Zoster Vaccines (1 of 2) 1964 DIABETES-EYE EXAM 05/11/2012 05/11/2011, , 12/24/2008, Additional history exists COVID-19 Vaccine (2022- season) 2023 05/05/2022, 07/05/2021, 01/02/2021, Additional history exists Influenza Vaccine (FLU shot) (#1) 2023 02/20/2013 HbA1c 07/06/2023 01/05/2023, 07/0 09/2022, 10/10/2022, Additional history exists Albumin/Creatinine Ratio 10/11/2023 023, 11/23/2021, 08/19/2021, Additional history exists TSH 01/06/2024 01/05/2023, 07/0 09/2022, 10/10/2022, Additional history exists GFR 01/18/2024 01/17/2023, 083 05/2022, 01/05/2023, Additional history exists DXA Scan 09/01/2029 09/01/2022, 11/0 10/2019, 03/12/2018, Additional history exists Colonoscopy Discontinued 03/16/2016, 03/16/2016 Colorectal Cancer Screening Discontinued Cologuard Discontinued Fecal Occult Blood Test Discontinued GARDASIL-HPV IMMUNIZATION SERIES Aged Out No longer eligible based on patient's age to complete this topic Hepatitis B Aged Out No longer eligi ble based on patient's age to complete this topic MENINGOCOCCAL (MENACTRA/MENVEO) Aged Out No longer eligible based on patient's age to complete this topic Sigmoidoscopy Discontinued documented as of this encounter Medical Devices Not on filedocumented as of this encounter Visit Diagnoses Diagnosis Type II diabetes mellitus with hyperosmolarity, uncontrolled (HCC) Type II or unspecified type diabetes mellitus with hyperosmolarity, uncontrolled Insulin long-term use (HCC) Encounter for long-term (current) use of insulin documented in this encounter Advance Directives Latest [...] the patient have Health Care Power of Bereavement Counselor? No Code Status History Code Status Date Activated Date Inactivated Comments Full Code 07/14/2015 7:04 PM 2015 2:45 PM This o rder reflects the patients wishes and were consensually agreed upon. Question Answer Comments Discussion of Advance Directives occurred with: Patient Does the patient have a Living Will? No Does the patient have Health Care Power of Bereavement Counselor? No Care Teams Medical Associate Relationship Specialty Start Date End Date Joe Quesada, DO [address] [place] [address] PCP - General Family Medicine 08/03/12 documented as of this encounter
--- OUTSIDE RECORDS SUMMARY | 2023-03-18 12:34 | External Medical Summary ---
Author Name Unknown Address Unknown Organization K01:LABORATORY [facility] [place] - [address] [facility] [address] Laboratory Report Ordering Provider Test Date Status BOZENA HIGHTOWER 03/10/2023 07:26:36 Final Observation Date Value Abnormality Reference (Units ) Status WBC, Total 03/10/2023 07:26:36 6.75 4.00-10.80 (K/uL) Final RBC 03/10/2023 07:26:36 3.71 3.85-5.15 (M/uL) Final Hemoglobin 03/10/2023 07:26:36 11.5 Below low normal 12.0-15.3 (g/dL) Final HCT 03/10/2023 07:26:36 36.7 36.0-45.2 (%) Final MCV 03/10/2023 07:26:36 98.9 81.5-97.5 (fL) Final MCH 03/10/2023 07:26:36 31.0 27.0-34.0 (pg) Final MCHC 03/10/2023 07:26:36 31.3 32.0-36.0 (g/dL) Final RDW 03/10/2023 07:26:36 14.6 11.5-15.5 (%) Final Platelets 03/10/2023 07:26:36 254 140-400 (K/uL) Final MPV 03/10/2023 07:26:36 11.0 6.6-11.1 (fL) Final Nucleated erythrocytes/100 leukocytes [Ratio] in Blood by Automated count 03/10/2023 07:26:36 0 <=0 (/100 WBCs) Final Performing Location LABORATORY [facility] [place] - [address] [facility] [address]
--- OUTSIDE RECORDS SUMMARY | 2023-03-18 12:34 | External Medical Summary | Summary of Care ---
Author Name Unknown Organization [facility] Address [address] [place] [address] Phone [phone] Care Team Providers Care Foreign Collection Clerk Name Role Phone QuesadaAol harrisonn Ti Primary Care Provider [phone] Reason for Visit * Reason Comments Outpatient Testing Encounter Details Date Type Department Care Team Description 02/09/2023 Laboratory [facility], [address] [address] [address] Kidney transplant status*; Type II diabetes mellitus with hyperosmolarity, uncontrolled (HCC); Insulin long-term use (HCC); Hydronephrosis, unspecified hydronephrosis type Allergies Active Allergy Reactions Severity Noted Date [...] Active metFORMIN ER (GLUCOPHAGE XR) 500 MG HA21Dawvyviflra:twi ce daily Indications: twice daily 0 Active [...] Capsule Take by mouth. 0 Active Nystatin [id number] UNIT/GM External Cream 2 times a day. [...] No 06/09/2018 documented as of this encounter Miscellaneous Notes * Addendum Note - BRISA Reyes - 02/09/2023 9:21 AM EDTAddended by: NAVA GALO on: 02/09/2023 09:21 AM Modules accepted: Orders documented in this encounter Plan of Treatment Upcoming Encounters Date Type Specialty Care Team Description 02/13/2024 Office Visit Dermatology Suzy Beaulieu PA-C [address] [place] [address] [place] [phone] Pending Results Name Type Priority Associated Diagnoses [...] use (HCC) 02/09/2023 7:56 AM EDT Scheduled Orders Name Type Priority Associated Diagnoses Orde r Schedule CBC WITH WBC DIFFERENTIAL Lab Routine Kidney transplant status Hydronephrosis, unspecified hydronephrosis type Expected: 02/09/2023, Expires: 02/10/2024 Scheduled Procedures Name Priority Associated Diagnoses Date/Ti [...] 09/2022, 10/10/2022, Additional history exists Albumin/Creatinine Ratio 10/11/20232 023, 11/23/2021, 08/19/2021, Additional history exists TSH 01/06/2024 01/05/2023, 07/0 09/2022, 10/10/2022, Additional history exists GFR 01/18/2024 01/17/2023, 08/3 05/2022, 01/05/2023, Additional history exists DXA Scan [...] as of this encounter Visit Diagnoses Diagnosis Kidney transplant status- Primary Type II diabetes mellitus with hyperosmolarity, uncontrolled (HCC) Type II or unspecified type diabetes mellitus with hyperosmolarity, uncontrolled Insulin long-term use (HCC) Encounter for long-term (current) use of insulin Hydronephrosis, unspecified hydronephrosis type documented in this encounter Advance Directives Latest [...] the patient have Health Care Power of Primer Charging Tool Setter? No Code Status History Code Status Date Activated Date Inactivated Comments Full Code 07/14/2015 7:04 PM 2015 2:45 PM This o rder reflects the patients wishes and were consensually agreed upon. Question Answer Comments Discussion of Advance Directives occurred with: Patient Does the patient have a Living Will? No Does the patient have Health Care Power of Primer Charging Tool Setter? No Care Teams Foreign Collection Clerk Relationship Specialty Start Date End Date Joe Quesada, DO [address] [place] [id number] PCP - General Family Medicine 08/03/12 documented as of this encounter
--- OUTSIDE RECORDS SUMMARY | 2023-03-18 12:34 | External Medical Summary | Summary of Care ---
Author Name Unknown Organization [facility] Address [address] [place] [address] Phone [phone] Care Team Providers Care Burn Table Operator Name Role Phone Joe Quesada Primary Care Provider [phone] Reason for Visit * Reason Comments Outpatient Testing Encounter Details Date Type Department Care Team (Late st Contact Info) Description 03/10/2023 7:30 AM EDT [facility], [address] [address] [address] Aftercare following organ transplant; Encounter [...] Active metFORMIN ER (GLUCOPHAGE XR) 500 MG CN27Ygcsthhvjkd:twi ce daily Indications: twice daily 0 Active [...] Capsule Take by mouth. 0 Active Nystatin [id number] UNIT/GM External Cream 2 times a day. [...] encounter Miscellaneous Notes * Addendum Note - Libia Luis OSA - 03/10/2023 7:55 PM EDTAddended by: LIBIA LUIS on: 03/10/2023 07:55 PM Modules accepted: Orders documented in this encounter Plan of Treatment Upcoming Encounters Date Type Department Care Team (Late st Contact Info) Description 02/13/2024 10:40 AM EDT Office Visit Dermatology, Eva Molina [address] [place] [address] [address] Suzy Beaulieu PA-C [address] [place] [address] [place] [address] Pending Results Name Type Priority Associated Diagnoses [...] Routine Hydronephrosis 03/10/2023 7:36 AM EDT Scheduled Orders Name Type Priority Associated Diagnoses Orde r Schedule EXTRA TUBES Lab Routine Ordered: 07/2022 EXTRA URINE MARBLE TOP Lab Routine Or dered: 03/10/2023 Scheduled Procedures Name Priority Associated Diagnoses Date/Ti [...] 11/09/2022, Additional history exists GFR 03/09/2024 03/09/2023, 09/2022, 02/09/2023, Additional history exists DXA Scan [...] the patient have Health Care Power of Treating Plant Operator? No Code Status History Code Status Date Activated Date Inactivated Comments Full Code 07/14/2015 7:04 PM 2015 2:45 PM This o rder reflects the patients wishes and were consensually agreed upon. Question Answer Comments Discussion of Advance Directives occurred with: Patient Does the patient have a Living Will? No Does the patient have Health Care Power of Treating Plant Operator? No Care Teams Burn Table Operator Relationship Specialty Start Date End Date Joe Quesada DO [address] [place] [address] PCP - General Family Medicine 08/03/12 documented as of this encounter
--- OUTSIDE RECORDS SUMMARY | 2023-03-18 12:34 | External Medical Summary | Summary of Care ---
Author Name Unknown Organization [facility] Address [address] [place] [address] Phone [phone] Care Team Providers Care Driver Sales Name Role Phone QuesadaAlo harrisonn Ti Primary Care Provider [phone] Reason for Visit * Reason Comments Outpatient Testing Encounter Details Date Type Department Care Team Description 02/20/2023 Laboratory [facility], [address] [address] [address] medical terminologist (current) use of anticoagulants; Heart valve transplanted Allergies Active Allergy Reactions Severity Noted Date Comments Sulfa Antibiotics Itching,Rash Low 02/05/2016 Sulfonylureas 07/04/2003 Wasp Venom Protein 09/27/2006 documented as of this encounter (statuses as of 02/20/2023) Medications Medication Sig Dispensed Refills Start Date [...] Active metFORMIN ER (GLUCOPHAGE XR) 500 MG CS47Cnjhvwuzuxw:twi ce daily Indications: twice daily 0 Active [...] Capsule Take by mouth. 0 Active Nystatin 198859 UNIT/GM External Cream 2 times a day. [...] as of this encounter (statuses as of 02/20/2023) Active Problems Problem Noted Date History of [...] as of this encounter (statuses as of 02/20/2023) Resolved Problems Problem Noted Date Resolved Date [...] as of this encounter (statuses as of 02/20/2023) Immunizations Name Administration Dates Next Due COVID-19 [...] (15 years old or older) No 06/09/19 Cognitive Status Response Date of Assessm ent Because of a physical, menta l, or emotional condition, do you have serious difficulty concentrating, remembering, or making decisions? (5 years old or older No 06/09/2018 documented as of this encounter Plan of Treatment Upcoming Encounters Date Type Specialty Care Team Description 02/13/2024 Office Visit Dermatology Suzy Beaulieu PA-C [address] [place] [address] [place] [address] Pending Results Name Type Priority Associated Diagnoses Date /Time PT INR Lab Routine medical terminologist (current) use of anticoagulants Heart valve transplanted 02/20/2023 8:43 AM EDT Scheduled Procedures Name Priority Associated [...] 12/24/2008, Additional history exists COVID-19 Vaccine ( - 2022- season) 2023 05/05/2022, 07/05/2021, 01/02/2021, Additional history exists Influenza Vaccine (FLU shot) (#1) 2023 02/20/2013 HbA1c 08/11/2023 02/09/2023, 12/08, 11/09/2022, Additional history exists Albumin/Creatinine Ratio 10/11/2023 023, 11/23/2021, 08/19/2021, Additional history exists GFR 02/10/2024 02/09/2023, 09/2022, 01/17/2023, Additional history exists TSH 02/10/2024 02/09/2023, 12/08, 11/09/2022, Additional history exists DXA Scan 09/01/2029 09/01/2022, 1110/2019, 03/12/2018, Additional history exists Colonoscopy Discontinued 03/16/2016, [...] as of this encounter Visit Diagnoses Diagnosis shelter (current) use of anticoagulants Long-term (current) use [...] the patient have Health Care Power of Hogshead Wrecker? No Code Status History Code Status Date Activated Date Inactivated Comments Full Code 07/14/2015 7:04 PM 2015 2:45 PM This o rder reflects the patients wishes and were consensually agreed upon. Question Answer Comments Discussion of Advance Directives occurred with: Patient Does the patient have a Living Will? No Does the patient have Health Care Power of Hogshead Wrecker? No Care Teams Driver Sales Relationship Specialty Start Date End Date Joe Quesada, DO [address] [place] [phone] PCP - General Family Medicine 08/03/12 documented as of this encounter
--- OUTSIDE RECORDS SUMMARY | 2023-03-18 12:34 | External Medical Summary ---
Author Name Unknown Address Unknown Organization [facility] [address] [place] [address] Laboratory Report Ordering Provider Test Date Status MARIA COLVIN 02/09/2023 07:56:46 Final PLEASE FAX RESULTS TO: [phone] Observation Date Value Abnormality Reference (Units ) Status T4, Free 02/09/2023 07:56:46 1.5 0.9-1.7 (n g/dL) Final Performing Location [facility] [address] [place] [address]
--- OUTSIDE RECORDS SUMMARY | 2023-03-18 12:34 | External Medical Summary | Summary of Care ---
Author Name Unknown Organization [facility] Address [address] [place] [address] Phone [phone] Care Team Providers Care Animal Geneticist Name Role Phone Joe Quesada Primary Care Provider [phone] Reason for Visit * Reason Comments Frequent Urination * Auth/Cert Specialty Diagnoses / Procedures Referred By Adriana goodwin Referred To Contact Referral ID Status Reason Start Date Expiration Date Visits Re quested Visits Authorized [id number] Encounter Details Date Type Department Care Team Description 02/11/2023 Emergency [facility] Emergency Department (GL) [address] [place] [address] Hien Larkin, [address] [place] [address] Urinary tract infection associated with indwelling urethral catheter, initial encounter (Primary Dx) Allergies Active Allergy Reactions Severity Noted Date Comments Sulfa Antibiotics Itching,Rash Low 02/05/2016 Sulfonylureas 07/04/2003 Wasp Venom Protein 09/27/2006 documented as of this encounter (statuses as of 02/12/2023) Medications Medication Sig Dispensed Refills Start Date [...] Active metFORMIN ER (GLUCOPHAGE XR) 500 MG [id number] ce daily Indications: twice daily 0 Active [...] Capsule Take by mouth. 0 Active Nystatin [id number] UNIT/GM External Cream 2 times a day. [...] MG Oral Tablet (Cipro) 0 11/29/2022 Active Ciprofloxacin HCl 500 MG Oral Tablet (Cipro) Take 1 Tablet by mouth in the morning and 1 Tablet before bedtime. Do all this for 7 days. 14 Tablet 0 02/11/2023 02/18/2023 Active documented as of this encounter (statuses as of 02/12/2023) Active Problems Problem Noted Date History of [...] as of this encounter (statuses as of 02/12/2023) Resolved Problems Problem Noted Date Resolved Date [...] as of this encounter (statuses as of 02/12/2023) Immunizations Name Administration Dates Next Due COVID-19 [...] on file documented as of this encounter Last Filed Vital Signs Vital Sign Reading Time Taken Comments Blood Pressure 178/78 02/11/2023 2:00 PM EDT Pulse 95 02/11/2023 2:00 PM EDT Temperature 37 C (98.6 F) 02/11/2023 2:00 PM EDT Respiratory Rate 18 02/11/2023 2:00 PM EDT Oxygen Saturation 100% 02/11/2023 2:00 PM EDT Inhaled Oxygen Concentration - - Weight 65.9 kg (145 lb 4.8 oz) 02/11/2023 2:00 P M EDT Height 152.4 cm (5') 02/11/2023 2:00 PM EDT Body Mass Index 28.38 02/11/2023 2:00 PM EDT documented in this encounter Functional Status Functional Status Response [...] No 06/09/2018 documented as of this encounter ED Notes * Hien Larkin, DO - 02/11/2023 2:14 PM EDT HISTORY OF PRESENT ILLNESS Ida Fleming is a 77 year old female who presents to the ED for evaluation of Frequent Urination.The patient was seen at 02/11/23 1403. Patient is a 77-year-old female who presents with a chief complaint of urinary frequency and urgency and leaking around her catheter. She is past medical history of kidney transplant, hypertension, intracranial hemorrhage, diabetes. The patient states that shefollows with [facility] for her transplant team and will be seeing them in 2 days for procedure on her left kidney for possible nephrostomy tube. The patient had her [place] catheter changed 2 weeks ago is going to have a change in another 2 weeks. She did put on a new leg bag today has noticed that she ishad more urgency and frequency and leaking around the catheter. She came in for further evaluation.The patient denies any fevers, chills, nausea or vomiting. She does admit to some suprapubic abdominal pain. History provided by: patient language interpreter used: No Frequent Urination Associated symptoms: no abdominal pain, no fever, no nausea and no vomiting Review of Systems Constitutional: Negative for chills, fatigue and fever. HENT: Negative for congestion, rhinorrhea, sinus pressure, sinus pain, sneezing and sore throat. Eyes: Negative for photophobia and visual disturbance. Respiratory: Negative for cough, shortness of breath and wheezing. Cardiovascular: Negative for chest pain and palpitations. Gastrointestinal: Negative for abdominal pain, constipation, diarrhea, nausea and vomiting. Genitourinary: Positive for frequency and urgency. Negative for dysuria and hematuria. Musculoskeletal: Negative for back pain, neck pain and neck stiffness. Skin: Negative for rash and wound. Neurological: Negative for dizziness, light-headedness and headaches. The patient's allergies, past history, and medications were reviewed. PHYSICAL EXAM Initial Vitals (see all): BP 178/78 | Pulse 95 | Resp 18 | Temp 98.6 | O2 100 %Weight 65.91 kg | Height 152.4 cm | BMI 28.38 kg/m2 Initial Pain Assessment (see all): 0 (no pain)/10 ([facility] Adult Scale 0-10) Physical Exam Exam conducted with a yard hand present. Constitutional: General: She is not in acute distress. Appearance: She is not toxic-appearing. HENT: Head: Normocephalic. Nose: Nose normal. Mouth/Throat: Mouth: Mucous membranes are moist. Eyes: General: No scleral icterus. Pupils: Pupils are equal, round, and reactive to light. Cardiovascular: Rate and Rhythm: Normal rate. Heart sounds: No murmur heard. No gallop. Pulmonary: Effort: No respiratory distress. Breath sounds: Normal breath sounds. No wheezing. Comments: Clear breath sounds in all lung mtz. No acute respiratory distress. Pulse ox 100% on room air. Abdominal: General: There is no distension. Palpations: Abdomen is soft. Tenderness: There is abdominal tenderness in the suprapubic area. Comments: Suprapubic abdominal tenderness palpation. Abdomen is soft and nondistended. No guarding or rigidity. Genitourinary: Comments: Female tech was present during examination. Dallas catheter does appear to be leaking at the connection between the leg bag and the catheter. I do not see any active leaking at this time around the urethral opening. Musculoskeletal: General: No swelling or deformity. Normal range of motion. Cervical back: No rigidity. Lymphadenopathy: Cervical: No cervical adenopathy. Skin: General: Skin is warm. Capillary Refill: Capillary refill takes less than 2 seconds. Coloration: Skin is not jaundiced. Findings: No bruising. Neurological: Mental Status: She is alert and oriented to person, place, and time. Cranial Nerves: No cranial nerve deficit. Motor: No weakness. PROCEDURES AND TREATMENTS ED Orders | ED Results MEDICAL DECISION MAKING Nursing notes and vital signs were reviewed. ED Course as of 02/11/23 1508 Sat Feb 11, 2023 1457 Dallas catheter was replaced and did get 400 mL of cloudy urine returned the patient is feelingbetter at this time. [MS] 1502 Patient was updated on her laboratory results and she states she has tolerated ciprofloxacin in the past I did look at previous urine cultures and she was sensitive to those in the past as well.She will be discharged home with a prescription and follow up with [facility] Urology in 2 days. [MS] ED Course User Index [MS] Hien Larkin DO Patient is a 77-year-old female who presents with a chief complaint of urinary urgency and frequency. She does have a indwelling Dallas catheter, history of kidney transplant. She does follow he [facility]. She did change her leg bag today and the catheter was placed 2 weeks ago but she noticed leaking around. There was leaking at the connection from the Dallas catheter with a leg bag. Dallas catheter was replaced and she did have immediate output of 400 mL of urine that was cloudy. I do feel this could be an obstruction somewhere along the tubing. She is feeling much better after placement and she did showed have urinary tract infection culture still pending at this time. Per review of the previous urine culture she was sensitive to ciprofloxacin which she has tolerated in thepast so I did treat her with this and discharged her home. She will be seeing [facility] Urology in 2 days for follow-up. Any worsening symptoms return. No further questions. Amount and/or Complexity of Data Reviewed Labs: ordered. Risk Prescription drug management. Clinical Impressions Urinary tract infection associated with indwelling urethral catheter, initial encounter Disposition Discharged. The patient's condition at disposition was: stable. Discharge Medications Disp Refills Start End Ciprofloxacin HCl 500 MG Oral Tablet (Cipro) 14 Tablet 0 02/11/2023 02/18/2023 Sig - Route: Take 1 Tablet by mouth in the morning and 1 Tablet before bedtime. Do all this for 7 days. - Oral Class: ePrescribing Renewals Renewal requests to authorizing provider (Hien Larkin DO) <b>prohibited</b> Hien Larkin * Zuleika Montgomery RN - 02/11/2023 1:59 PM EDT Pt having problems with a transplanted kidney. Pt states they placed a cath 2 weeks ago. Pt states she changed the bag today and has been having problems with urgency since and has been leaking around cath documented in this encounter Miscellaneous Notes * ED Commercial Real Estate Appraiser Note - Ashley Gomez RN - 02/11/2023 3:10 PM EDT Discharge instructions provided. Pt verbalized understanding. Pt rating pain 0/10 at this time. Pt aware prescriptions sent via escript to pharmacy. Pt discharged per physician order. Pt ambulated from this ED with steady gait. * Pt Handout (on AVS) - Hien Larkin, DO - 02/11/2023 3:03 PM EDT Images from the original note were not included. [id number] Urinary Tract Infections in Women Urinary tract infections (UTIs) are most often caused by bacteria. These bacteria enter the urinarytract. The bacteria may come from inside the body. Or they may travel from the skin outside the rectum or vagina into the urethra. Female anatomy makes it easy for bacteria from the bowel to enter a person?s urinary tract. This is the most common source of UTIs. This means women develop UTIs more often than men. Pain in or around the urinary tract is a common UTI symptom. But the only way to know for sure if you have a UTI is for the healthcare provider to test your pee. The two tests that may be done are the urinalysis and urine culture. These tests tell your provider if you have a UTI and what type of bacteria is causing it. Gender words are used here to talk about anatomy and health risk. Please use this information in a way that works best for you and your provider as you talk about your care. Types of UTIs Cystitis. A bladder infection (cystitis) is the most common UTI in women. You may have an urgentor frequent need to pee. You may also have pain, burning when you pee, and bloody urine. Urethritis. This is an inflamed urethra. This is the tube that carries urine from the bladder tooutside the body. You may have lower stomach or back pain. You may also have an urgent or frequent need to pee. Pyelonephritis. This is a kidney infection. It can be serious and damage your kidneys if not treated. You may need to stay in the hospital in severe cases. You may have a fever and lower back pain. Medicines to treat a UTI Most UTIs are treated with antibiotics. These kill the bacteria. The length of time you need to take them depends on the type of infection. It may be as short as 3 days. You may need a low-dose antibiotic for several months if you have repeated UTIs. Take antibiotics exactly as directed. Don?t stoptaking them until all of the medicine is gone, even if you feel better. The infection may not go away fully and return if you stop taking the antibiotic too soon. You may also develop a resistance tothe antibiotic. This can make it much harder to treat. Lifestyle changes to treat and prevent UTIs The lifestyle changes below will help get rid of your UTI. They may also help prevent future UTIs. Drink plenty of fluids. This includes water, juice, or other caffeine-free drinks. Fluids help flush bacteria out of your body. Empty your bladder. Always empty your bladder when you feel the urge to pee. And always pee before going to sleep. Urine that stays in your bladder can lead to infection. Try to pee before and after sex as well. Practice good personal hygiene. Wipe yourself from front to back after using the toilet. This helps keep bacteria from getting into the urethra. Wear cotton underwear. Don't wear synthetic or tight-fitting underwear that can trap moisture. Change out of wet bathing suits and workout clothing quickly. Take showers. Showers are better than baths for preventing UTIs. Use condoms during sex. These help prevent UTIs caused by sexually transmitted bacteria. Also don't use spermicides during sex. These can increase the risk for UTIs. Choose other forms of control instead. A low dose of a preventive antibiotic may be used for women who tend to get UTIs after sex. Be sure to discuss this choice with your healthcare provider. Follow up with your healthcare provider as directed. They may test to make sure the infection has cleared. If needed, more treatment may be started. Last Reviewed Date: 12/06/202219997676-8278 The [employer]. All rights reserved. This information is not intended as a substitute for professional medical care. Always follow your healthcare professional's instructions. documented in this encounter Plan of Treatment Upcoming Encounters Date Type Specialty Care Team Description 02/13/2024 Office Visit Dermatology Suzy Beaulieu PA-C [address] [facility] [address] [phone] Pending Results Name Type Priority Associated Diagnoses Date /Time CULTURE, URINE, QUANTITATIVE Lab STAT 02/11/2023 2:28 PM EDT Scheduled Orders Name Type Priority Associated Diagnoses Orde r Schedule CULTURE, URINE, QUANTITATIVE Lab STAT Perform Now for 1 Occurrences starting 02/11/2023 until 02/11/2023 Scheduled Procedures Name Priority Associated Diagnoses Date/Ti [...] 08/19/2021, Additional history exists GFR 02/10/2024 02/09/2023, 01/06, 01/05/2023, Additional history exists TSH 02/10/2024 02/09/2023, 12/08, 11/09/2022, Additional history exists DXA Scan 09/01/2029 09/01/2022, 11/10/2019, 03/12/2018, Additional history exists Colonoscopy Discontinued 03/16/2016, [...] Not on filedocumented as of this encounter Procedures Procedure Name Priority Date/Time Associated Diagnosis Comments MICROSCOPIC EXAM, URINE STAT 02/11/2023 2:28 PM EDT URINALYSIS, REFLEX TO MICROSCOPIC STAT 02/11/2023 2:28 PM EDT documented in this encounter Results * (ABNORMAL) MICROSCOPIC EXAM, URINE (02/11/2023 2:28 PM EDT) RBC, Urine 6-9(A) 0 - 2 /HPF 02/11/2023 2:45 PM EDT [facility] WBC, Urine 50+(A) 0 - 2 /HPF 02/11/2023 2:45 PM EDT LAB[facility] Bacteria, Urine >200(A) 0 - 25 /HPF 02/11/2023 2:45 PM EDT [facility] Urine Non-blood Collection / Unknown 02/11/2023 2:28 PM EDT 02/11/2023 2:29 PM EDT Hien Larkin DO LAB URINE [facility] [address] [place] [address] * (ABNORMAL) URINALYSIS, REFLEX TO MICROSCOPIC (02/11/2023 2:28 PM EDT) Color, Urine Yellow Light Yellow, Yellow, Dark Yellow 02/11/2023 2:37 PM EDT [facility] Clarity, Urine Clear Clear 02/11/2023 2:37 PM EDT [facility] Glucose, Urine 250(A) Negative mg/dL 02/11/2023 2:37 PM EDT [facility] Bilirubin, Urine Negative Negative 02/11/2023 2:37 PM EDT [facility] Ketone, Urine Negative Negative mg/dL 02/11/2023 2:37 PM EDT [facility] Specific [place], Urine 1.009 1.003 - 1.030 02/11/2023 2:37 PM EDT [facility] Blood, Urine Large(A) Negative 02/11/2023 2:37 PM EDT [facility] pH, Urine 6.5 5.0 - 7.5 Units 02/11/2023 2:37 PM EDT [facility] Protein, Urine 100(A) Negative mg/dL 02/11/2023 2:37 PM EDT [facility] Urobilinogen, Urine 0.2 0.2, 1.0 mg/dL 02/11/2023 2:37 PM EDT [facility] Nitrite, Urine Positive(A) Negative 02/11/2023 2:37 PM EDT [facility] Esterase, Urine Moderate(A) Negative 02/11/2023 2:37 PM EDT [facility] Urine Non-blood Collection / Unknown 02/11/2023 2:28 PM EDT 02/11/2023 2:29 PM EDT Hien Larkin DO LAB URINE [facility] [address] [place] [address] documented in this encounter Visit Diagnoses Diagnosis Urinary tract infection associated with indwelling urethral catheter, initial encounter- Primary documented in this encounter Advance Directives Latest [...] the patient have Health Care Power of Field Agent? No Code Status History Code Status Date Activated Date Inactivated Comments Full Code 07/14/2015 7:04 PM 2015 2:45 PM This o rder reflects the patients wishes and were consensually agreed upon. Question Answer Comments Discussion of Advance Directives occurred with: Patient Does the patient have a Living Will? No Does the patient have Health Care Power of Field Agent? No Care Teams Animal Geneticist Relationship Specialty Start Date End Date Joe Quesada, [address] [place] [phone] PCP - General Family Medicine 08/03/12 documented as of this encounter"
--- OUTSIDE RECORDS SUMMARY | 2023-03-18 12:34 | External Medical Summary ---
Author Name Unknown Address Unknown Organization [id number]:[facility] - [address] [facility] [address] Laboratory Report Ordering Provider Test Date Status MARIA COLVIN 02/09/2023 07:56:46 Final PLEASE FAX RESULTS TO: [phone] [phone] Observation Date Value Abnormality Reference (Units ) Status HbA1C 02/09/2023 07:56:46 7.5 Above high normal 4. 0-5.6 (%) Final The use of HbA1c to monitor glycemic status is based on normal hemoglobin and HbA composition. This test should not be used in patients with abnormal hemoglobin that affects the half life of the red blood cell or the in vivo glycation rates. Glucose, estimated average 02/09/2023 07:56:46 169 Above high normal <126 (mg/dL) Evan gamboa Performing Location [facility] - [address] [facility] [address]
--- OUTSIDE RECORDS SUMMARY | 2023-03-18 12:35 | External Medical Summary | Summary of Care ---
Author Name Unknown Organization [facility] Address [address] [facility] [place] [address] Phone [phone] Care Team Providers Care Contracts Manager Name Role Phone Alo Quesadan Ti Primary Care Provider [phone] Reason for Visit * Reason Comments Skin Check Waist up skin check - HX Kidney Transplant. Only wants wait up - has a catheter in today.No concerns today. Encounter Details Date Type Department Care Team Description 02/06/2023 Office Visit Dermatology, Eva Molina [address] [place] [address] [address] Suzy Beaulieu PA-C [address] [facility] [address] [address] Skin exam, screening for cancer*; Living related donor renal transplant; Seborrheic keratosis; Inflamed seborrheic keratosis Allergies Active Allergy Reactions Severity Noted Date Comments Sulfa Antibiotics Itching,Rash Low 02/05/2016 Sulfonylureas 07/04/2003 Wasp Venom Protein 09/27/2006 documented as of this encounter (statuses as of 02/06/2023) Medications Medication Sig Dispensed Refills Start Date [...] Active metFORMIN ER (GLUCOPHAGE XR) 500 MG [id number] ce daily Indications: twice daily 0 Active [...] 11/30/2022 Benzonatate 100 MG Oral Capsule (Tessalon Perles)Indications: Acute cough Take 1 Capsule (100 mg) [...] Capsule Take by mouth. 0 Active Nystatin 913491 UNIT/GM External Cream 2 times a day. [...] as of this encounter (statuses as of 02/06/2023) Active Problems Problem Noted Date History of [...] as of this encounter (statuses as of 02/06/2023) Resolved Problems Problem Noted Date Resolved Date [...] as of this encounter (statuses as of 02/06/2023) Immunizations Name Administration Dates Next Due COVID-19 [...] Date Smoking Tobacco: Never Smokeless Tobacco: Never Tobacco Cessation:Counseling Given: Not Answered Alcohol Use Standard Drinks/Week Comments No 0 [...] No 06/09/2018 documented as of this encounter Progress Notes * Suzy Beaulieu PA-C - 02/06/2023 10:04 AM EDT SUBJECTIVE: HPI: Ida Fleming is a 77 year old female seen for full skin exam s/p kidney transplant. Follows with [facility] transplant team- sees them once a year. 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 Seeing Nephrology at [facility] and coordinating care with her transplant team at [facility]. Only wants waist up skin exam since she has that catheter. 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 HEME/LYMPH: No new or enlarging lumps or bumps. 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 Encounter for long-term (current) use of other medications Prednisone Hyperthyroidism Myogenic ptosis NEPHROTIC SYNDROME NOS S/P kidney Tx: rejected; on dialysis; new Tx FAMILY HISTORY: Skin CA: None Skin Disorders: none SOCIAL HISTORY: Social History Tobacco Use Smoking status: Never Smokeless tobacco: Never Substance Use Topics Alcohol use: No Vaping/E-Cigarette Use Vaping/E-Cigarette Use Never User Vaping/E-Cigarette Substances Vaping/E-Cigarette Devices MEDICA TIONS: Current Outpatient Medications Medication Sig Dispense Refill LIPITOR 20 MG PO TABS daily HYDROCHLOROTHIAZIDE 12.5 MG PO TABS daily VITAMIN D 400 UNIT PO CAPS 2000 units daily NOVOLIN N 100 UNIT/ML SUBQ SUSP 6 units breakfast,3 units lunch, 5 units dinner LEVEMIR 100 UNIT/ML SUBQ SOLN 14 units every morning. MAGNESIUM 400 MG PO CAPS 1 tab daily CRANBERRY 1000 MG PO CAPS 1 daily mycophenolate mofetil (CELLCEPT) 250 MG Capsule Take 3 Capsules by mouth in the morning and 3 Capsules before bedtime. tacrolimus (PROGRAF) 0.5 MG Capsule Resume prior home dose of 0.5mg in AM and 1.0mg in evening 1 Cap 0 PredniSONE (DELTASONE) 2.5 MG Tablet Take 1 Tab by mouth daily. (Patient taking differently: Take 2Tablets by mouth in the morning.) 1 Tab 0 levothyroxine (LEVOXYL) 100 MCG Tablet Take 1 Tab by mouth daily first thing in the morning. (at least 30 min prior to breakfast or other meds) 1 Tab 0 metFORMIN ER (GLUCOPHAGE XR) 500 MG TB24 Indications: twice daily Warfarin Sodium (WARFARIN CHECK DAILY DOSE, PROVIDER MANAGED,) aspirin 81 MG chewable tablet Take 1 Tab by mouth daily. 30 Tab 0 Gabapentin 600 MG Oral Tablet (NEURONTIN) TAKE 1 TABLET BY MOUTH EVERYDAY AT BEDTIME Gabapentin 300 MG Oral Capsule (Neurontin) 2 capsules three times a day amLODIPine Besylate 2.5 MG Oral Tablet (Norvasc) Take 1 Tablet by mouth in the morning. Valsartan 320 MG Oral Tablet (Diovan) Take 1 Tablet by mouth in the morning. Benzonatate 100 MG Oral Capsule (Tessalon Perles) Take 1 Capsule (100 mg) by mouth 3 times a day asneeded for Cough. Do not cut, crush, or chew. 50 Capsule 1 Cholecalciferol 50 MCG (2000 UT) Oral Capsule Take 1 Capsule by mouth. NovoLOG FlexPen 100 UNIT/ML Subcutaneous Solution Pen-injector INJECT 9 UNITS UNDER THE SKIN 3 TIMES/DAY W/MEALS. BG<100 GIVE HALF. BG<90 OR NOT EATING-DO NOT GIVE RA Probiotic Digestive Care Oral Capsule Take by mouth. Nystatin 899075 UNIT/GM External Cream 2 times a day. To affected area. Metoprolol Succinate ER 50 MG Oral Tablet Extended Release 24 Hour (toPROL XL) Take 1 Tablet by mouth in the morning and 1 Tablet before bedtime. Valsartan 160 MG Oral Tablet (Diovan) TAKE 1 TABLET (160 MG TOTAL) BY MOUTH TWICE A DAY. Warfarin Sodium 2 MG Oral Tablet (Coumadin) TAKE 1 TABLET BY MOUTH EVERY DAY DIRECTED TOPROL XL 25 MG PO TB24 1 daily (Patient not taking: Reported on 11/30/2022) 0 TUMS 500 MG PO CHEW daily lisinopril (PRINIVIL) 20 MG Tablet Take 1 Tab by mouth daily. (Patient not taking: Reported on 02/06/2023) 30 Tab 0 Denosumab 60 MG/ML Subcutaneous Solution Prefilled Syringe (Prolia) Start: 05/28/20 13:31:00 EST Lidocaine 4 % External Patch (Aspercreme) Place topically on the skin 1 Patch in the morning. (Patient not taking: Reported on 11/30/2022) 30 Patch 0 Fluticasone Propionate 50 MCG/ACT Nasal Suspension (Flonase) Administer 2 Sprays into each nostril in the morning. (Patient not taking: Reported on 11/30/2022) 18.2 mL 0 Ciprofloxacin HCl 500 MG Oral Tablet (Cipro) (Patient not taking: Reported on 02/06/2023) No current facility-administered medications for this visit. ALLERG Y: Sulfonylureas, Wasp venom protein, and Sulfa antibiotics OBJECT TEZ: GEN: Healthy, alert, no distress, appears oriented, pleasant and cooperative. SKIN: Detailed exam of scalp, face, ears, neck, chest, back, abdomen, bilateral upper extremities completed and are normal except: 1. White keratotic papule on R dorsal hand 2. Multiple greasy, stuck-on, brown to skin colored papules scattered on face, trunk and extremities ASSESS MENT/PLAN: 1. Inflamed/irritated seborrheic keratosis. -Due to chronic irritation recommended cryotherapy. Patient agreeable. Cryotherapy was recommended for treatment today which patient was agreeable to. The risks, benefits, indications, alternatives, and complications were discussed, and informed consent was obtained. Specifically, the risks of permanent scar, loss or darkening of skin color, blister and recurrence of l esion were discussed. A total of 1 lesion(s) were treated with cryotherapy. The patient tolerated the procedure well without complications. Wound care instructions were given. 2. Seborrheic Keratoses -Reassured of the benign nature of lesion -Discussed with patient that they may get more of these lesions in the future -If there are any lesions that become irritated, bleed, or painful to return to clinic for evaluation -No current treatment necessary at this time 3. Skin cancer surveillance following organ transplantation -Associated risk of skin cancer, in particularly the 65x increased risk of squamous cell carcinoma and smaller but significant increased risk of basal cell carcinoma and melanoma, were discussed extensively -Sun protection and self skin exams discussed Patient with today. Follow-up: 1 year Home phone, can leave a message, can speak to Photos taken 15-25, patient consented to photos. Patient Phone Numbers Applicable photos (if any) and chart reviewed by Dr. William Fletcher The patient was encouraged to contact me with any further questions or concerns. There were no barriers tolearning and no other pain was related to today's visit. The patient and/or person accompanying patient demonstrates understanding of the visit and treatment. Suzy Beaulieu PA-C 02/06/2023 10:04 AM * Jass Fletcher MD - 02/06/2023 10:00 AM EDT I have reviewed the relevant notes and photographs taken by PAUL Vigil. I have reviewed and agree with the assessment and plan. Jass Fletcher MD documented in this encounter Nursing Notes * Rachna Terrell LPN - 02/06/2023 10:05 AM EDT Chief Complaint Patient presents with Skin Check Waist up skin check - HX Kidney Transplant. Only wants wait up - has a catheter in today. No concerns today. 02/03/2022 (in office), Visit date not found (telemedicine) documented in this encounter Plan of Treatment Upcoming Encounters Date Type Specialty Care Team Description 02/13/2024 Office Visit Dermatology Suzy Beaulieu PA-C [address] [place] [address] [phone] Scheduled Procedures Name Priority Associated Diagnoses Date/Ti [...] 05/11/2012 05/11/2011, , 12/24/2008, Additional history exists Influenza Vaccine (FLU shot) [...] Discontinued 03/16/2016, 03/16/2016 Colorectal Cancer Screening Discontinued COVID-19 Vaccine Completed 05/05/2022, , 01/02/2021, Additional history exists Cologuard Discontinued Fecal Occult Blood Test Discontinued [...] Procedure Name Priority Date/Time Associated Diagnosis Comments DERM IMAGE (SITE) Routine 02/06/2023 Skin exam, screening for cancer Living related donor renal transplant Seborrheic keratosis documented in this encounter Results * DERM IMAGE (SITE) (02/06/2023) 02/06/2023 Suzy Beaulieu PA-C DIGITAL PHOTOGRAPHY documented in this encounter Visit Diagnoses Diagnosis Skin exam, screening for cancer- Primary Screening for malignant neoplasm of the skin Living related donor renal transplant Kidney replaced by transplant Seborrheic keratosis Other seborrheic keratosis Inflamed seborrheic keratosis documented in this encounter Advance Directives Latest [...] the patient have Health Care Power of Project Economist? No Code Status History Code Status Date Activated Date Inactivated Comments Full Code 07/14/2015 7:04 PM 2015 2:45 PM This o rder reflects the patients wishes and were consensually agreed upon. Question Answer Comments Discussion of Advance Directives occurred with: Patient Does the patient have a Living Will? No Does the patient have Health Care Power of Project Economist? No Care Teams Contracts Manager Relationship Specialty Start Date End Date Joe Quesada, DO [address] [place] [address] [place] [id number] PCP - General Family Medicine 08/03/12 documented as of this encounter
--- OUTSIDE RECORDS SUMMARY | 2023-03-18 12:35 | External Medical Summary | Summary of Care ---
Author Name Unknown Organization [facility] Address [address] [facility] [place] [place] [address] Phone [phone] Care Team Providers Care Rx Specialist Name Role Phone Alo Quesadan Ti Primary Care Provider [phone] Reason for Visit * Reason Comments Skin Check Waist up skin check - HX Kidney Transplant. Only wants wait up - has a catheter in today.No concerns today. Encounter Details Date Type Department Care Team Description 02/06/2023 Office Visit Dermatology, Eva Molina [address] [place] [address] [address] Suzy Beaulieu PA-C [address] [facility] [address] [address] Skin exam, screening for cancer*; Living related [...] Active metFORMIN ER (GLUCOPHAGE XR) 500 MG [id number]:twi ce daily Indications: twice daily 0 Active [...] Capsule Take by mouth. 0 Active Nystatin 932198 UNIT/GM External Cream 2 times a day. [...] skin exam s/p kidney transplant. Follows with [facility] transplant team- sees them once a year. 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 Seeing Nephrology at [facility] and coordinating care with her transplant team at [facility]. 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 Nystatin 547469 UNIT/GM External Cream 2 times a day. [...] treatment. Suzy Beaulieu PA-C 02/06/2023 10:04 AM documented in this encounter Nursing Notes * [...] Beaulieu PA-C [address] [place] [address] [address] Scheduled Procedures Name Priority Associated Diagnoses Date/Ti [...] as of this encounter Visit Diagnoses Diagnosis Skin exam, [...] the patient have Health Care Power of Drying Tunnel Operator? No Code Status History Code Status Date Activated Date Inactivated Comments Full Code 07/14/2015 7:04 PM 2015 2:45 PM This o rder reflects the patients wishes and were consensually agreed upon. Question Answer Comments Discussion of Advance Directives occurred with: Patient Does the patient have a Living Will? No Does the patient have Health Care Power of Drying Tunnel Operator? No Care Teams Rx Specialist Relationship Specialty Start Date End Date Joe Quesada, DO [address] [place], [place] [phone] PCP - General Family Medicine 08/03/12 documented as of this encounter
--- OUTSIDE RECORDS SUMMARY | 2023-03-18 12:35 | External Medical Summary | Summary of Care ---
Author Name Unknown Organization [facility] Address [address] [place] [address] Phone [phone] Care Team Providers Care Greige Goods Examiner Name Role Phone QuesadaAlo harrisonn Ti Primary Care Provider [phone] Reason for Visit * Reason Comments Outpatient Testing Encounter Details Date Type Department Care Team Description 01/30/2023 Laboratory [facility], [address] [address] [address] longterm (current) use of anticoagulants; Heart valve transplanted Allergies Active Allergy Reactions Severity Noted Date Comments Sulfa Antibiotics Itching,Rash Low 02/05/2016 Sulfonylureas 07/04/2003 Wasp Venom Protein 09/27/2006 documented as of this encounter (statuses as of 01/30/2023) Medications Medication Sig Dispensed Refills Start Date [...] Tab 0 2015 Active Additional Information Patient not taking.Reported on 11/30/2022 levothyroxine (LEVOXYL) 100 MCG Tablet Take 1 Tab by mouth daily first thing in the morning. (at least 30 min prior to breakfast or other meds) 1 Tab 0 2015 Active metFORMIN ER (GLUCOPHAGE XR) 500 MG [id number]:twi ce daily Indications: twice daily 0 Active Warfarin Sodium (WARFARIN CHECK DAILY DOSE, PROVIDER MANAGED,) 0 Active aspirin 81 MG chewable tablet Take 1 Tab by mouth daily. 30 Tab 0 06/12/2018 Active lisinopril (PRINIVIL) 20 MG Tablet Take 1 Tab by mouth daily. 30 Tab 0 06/12/2018 Active Gabapentin 600 MG Oral Tablet (NEURONTIN) TAKE [...] on 11/30/2022 Benzonatate 100 MG Oral Capsule (Tesnurysjorge l Perlhorace)Indications: Acute cough Take 1 Capsule (100 mg) by mouth 3 times a day as needed for Cough. Do not cut, crush, or chew. 50 Capsule 1 04/20/2022 Active Additional Information Patient not taking.Reported on 11/30/2022 Cholecalciferol 50 MCG (2000 UT) Oral Capsule Take 1 Capsule by mouth. 0 Active NovoLOG FlexPen 100 UNIT/ML Subcutaneous Solution Pen-injector INJECT 9 UNITS UNDER THE SKIN 3 TIMES/DAY W/MEALS. BG<100 GIVE HALF. BG<90 OR NOT EATING-DO NOT GIVE 0 04/27/2022 Active RA Probiotic Digestive Care Oral Capsule Take by mouth. 0 Active Nystatin 512536 UNIT/GM External Cream 2 times a day. [...] as of this encounter (statuses as of 01/30/2023) Active Problems Problem Noted Date History of [...] as of this encounter (statuses as of 01/30/2023) Resolved Problems Problem Noted Date Resolved Date [...] as of this encounter (statuses as of 01/30/2023) Immunizations Name Administration Dates Next Due COVID-19 [...] Encounters Date Type Specialty Care Team Description 02/06/2023 Office Visit Dermatology Suzy Beaulieu PA-C [address] [place] [address] [phone] Pending Results Name Type Priority Associated Diagnoses Date /Time PT INR Lab Routine terminal operations manager (current) use of anticoagulants Heart valve transplanted 01/30/2023 11:33 AM EDT Scheduled Procedures Name Priority Associated [...] 10/10/2022, Additional history exists GFR 01/18/2024 01/17/2023, 3 05/2022, 01/05/2023, Additional history exists DXA Scan [...] as of this encounter Visit Diagnoses Diagnosis longterm (current) use of anticoagulants Long-term (current) use [...] the patient have Health Care Power of Departmental Secretary? No Code Status History Code Status Date Activated Date Inactivated Comments Full Code 07/14/2015 7:04 PM 2015 2:45 PM This o rder reflects the patients wishes and were consensually agreed upon. Question Answer Comments Discussion of Advance Directives occurred with: Patient Does the patient have a Living Will? No Does the patient have Health Care Power of Departmental Secretary? No Care Teams Greige Goods Examiner Relationship Specialty Start Date End Date Joe Quesada, DO [address] [place] [phone] PCP - General Family Medicine 08/03/12 documented as of this encounter
== END 2023-03-14 14:49 | disposition home or self-care (01) ==
LOC: ED 16:42 → SUATTDRO 03-14 00:36 → EDINP 03-14 00:36 → INTOOBSV 03-14 00:36 → EDINP 03-14 01:32